=== PATIENT | female | born 1995 | race Caucasian/White ===

== ENCOUNTER 2020-01-15 12:59 | Outpatient (REF) | payer OTHER, SELFPAY ==
[2020-01-15 13:39] LABS: Hematocrit 46.8 % (37-47); Hemoglobin 15.3 g/dl (12.0-16.0); Mean Corpuscular HGB Conc 32.7 g/dl (31.0-35.0); Mean Corpuscular Hemoglobin 28.6 pg (27.0-33.0); Mean Corpuscular Volume 87.5 fL (80-98); Platelet Count 202 X10*3/uL (160-400); Red Blood Count 5.35 X10*6/uL (4.20-5.50); Red Cell Distribution Width 12.7 % (11.0-16.0); White Blood Count 6.7 X10*3/uL (4.8-10.8)
[2020-01-15 13:47] LABS: INTERNATIONAL NORM RATIO 1.1 (0.9-1.1); Prothrombin Time 13.5 SEC (10.8-13.0)
[2020-01-15 14:34] LABS: Alanine Aminotransferase 32 U/L (0-31); Alkaline Phosphatase 41 U/L (39-117); Aspartate Amino Transferase 23 U/L (5-31); Bilirubin Direct 0.7 mg/dL (0.0-0.5); Bilirubin Total 4.3 mg/dL (0.0-1.0); Gamma Glutamyl Transpeptidase 118 U/L (7-33); Total Protein 7.5 g/dL (6.5-8.0)
== END 2020-01-15 13:00 | disposition home or self-care (01) ==
LOC: HO.LAB 12:59
PROVIDERS: PCP Internal Medicine; Visit Provider Internal Medicine Gastroenterology
DX: R79.89 Other specified abnormal findings of blood chemistry (principal)
CPT/HCPCS: 36415; 80076; 82105; 82977; 85027; 85610

== ENCOUNTER → 2020-01-16 10:48 | Outpatient (BNVA) | payer OTHER, SELFPAY | PROVIDERS: PCP Internal Medicine; Referring Provider Internal Medicine; Visit Provider Internal Medicine Gastroenterology | DX: Z76.89 Persons encountering health services in other specified circumstances (principal) ==

== ENCOUNTER → 2020-01-16 10:48 | Outpatient (BNVA) | payer OTHER, SELFPAY | PROVIDERS: PCP Internal Medicine; Referring Provider Internal Medicine; Visit Provider Internal Medicine Gastroenterology ==

== ENCOUNTER → 2020-01-16 10:48 | Outpatient (BNVA) | payer OTHER, SELFPAY | PROVIDERS: PCP Internal Medicine; Referring Provider Internal Medicine; Visit Provider Internal Medicine Gastroenterology | DX: K74.60 Unspecified cirrhosis of liver (principal); R79.89 Other specified abnormal findings of blood chemistry | CPT/HCPCS: 99212 ==

== ENCOUNTER 2020-07-06 08:18 | Outpatient (REF) | payer OTHER, SELFPAY ==
[2020-07-06 09:50] LABS: Alanine Aminotransferase 33 U/L (0-31); Aspartate Amino Transferase 22 U/L (5-31); Cholesterol 144 mg/dL; HDL Cholesterol 44 mg/dL; LDL Cholesterol Calculated 67 mg/dl; Triglycerides 169 mg/dL
== END 2020-07-06 08:19 | disposition home or self-care (01) ==
LOC: HO.LAB 08:18
PROVIDERS: PCP Internal Medicine; Visit Provider Internal Medicine
DX: E78.1 Pure hyperglyceridemia (principal)
CPT/HCPCS: 36415; 80061; 84450; 84460

== ENCOUNTER 2020-09-24 11:24 | Outpatient (REF) | payer OTHER, SELFPAY ==
[2020-09-24 14:12] LABS: Basophils Absolute Auto 0.1 X10*3/uL (0.0-0.2); Hemoglobin 16.1 g/dl (12.0-16.0); MANUAL DIFF FLAG SCAN; PLT CLUMP 1; Red Cell Distribution Width 12.8 % (11.0-16.0); SCAN SMEAR FLAG 1
[2020-09-24 14:14] LABS: Basophils Percent Auto 1.1 % (0-2); Eosinophils Absolute Auto 0.2 X10*3/uL (0.0-0.4); Eosinophils Percent Auto 2.3 % (0-4); Hematocrit 49.5 % (37-47); INTERNATIONAL NORM RATIO 1.1 (0.9-1.1); Imm Gran Abs Auto 0.02 X10*3/uL (0.00-0.03); Imm Gran Pct Auto 0.3 % (0.0-0.4); Lymphocytes Absolute Auto 1.8 X10*3/uL (1.2-4.9); Lymphocytes Percent Auto 26.7 % (20-40); Mean Corpuscular HGB Conc 32.5 g/dl (31.0-35.0); Mean Corpuscular Hemoglobin 28.7 pg (27.0-33.0); Mean Corpuscular Volume 88.2 fL (80-98); Mean Platelet Volume 11.2 fL (9.4-12.3); Monocytes Absolute Auto 0.8 X10*3/uL (0.1-1.2); Monocytes Percent Auto 11.9 % (2-11); Neutrophils Absolute Auto 3.8 X10*3/uL (2.0-8.3); Neutrophils Percent Auto 57.7 % (45-73); Platelet Count 173 X10*3/uL (160-400); Prothrombin Time 12.7 SEC (10.8-13.0); Red Blood Count 5.61 X10*6/uL (4.20-5.50); White Blood Count 6.6 X10*3/uL (4.8-10.8)
[2020-09-24 14:15] LABS: Alanine Aminotransferase 28 U/L (0-31); Alkaline Phosphatase 38 U/L (39-117); Aspartate Amino Transferase 23 U/L (5-31); Bilirubin Direct 0.8 mg/dL (0.0-0.5); Bilirubin Total 3.7 mg/dL (0.0-1.0); Total Protein 7.7 g/dL (6.5-8.0)
[2020-09-24 14:35] LABS: SLIDE REVIEW VERIFIED
== END 2020-09-24 11:25 | disposition home or self-care (01) ==
LOC: HO.LAB 11:24
PROVIDERS: PCP Internal Medicine; Referring Provider Internal Medicine; Visit Provider Internal Medicine Gastroenterology
DX: K74.60 Unspecified cirrhosis of liver (principal); R79.89 Other specified abnormal findings of blood chemistry
CPT/HCPCS: 36415; 80076; 85025; 85610; 99212

== ENCOUNTER 2020-10-20 09:19 | Outpatient (REF) | payer OTHER, SELFPAY ==
--- NOTE | ~2020-10-20 | US_ITS ---
EXAMINATION: US ABDOMEN LIMITED CLINICAL INFORMATION: Unspecified cirrhosis of liver. COMPARISON: Ultrasound abdomen complete 06/05/2019 and 02/13/2019. TECHNIQUE: Real-time imaging of the right upper quadrant abdominal viscera. FINDINGS: There is situs inversus. PANCREAS: Not well visualized. The visualized pancreas appears prominent and slightly heterogeneous in echotexture similar to previous exam.. LIVER: Liver echotexture is heterogeneous. The liver is normal in size and contour. No focal hepatic lesion. There is no intrahepatic biliary duct dilatation seen. GALLBLADDER: Normal. The gallbladder is physiologically distended without evidence of stones, sludge, polyps, wall thickening or pericholecystic fluid. COMMON BILE DUCT: Normal in caliber measuring 0.12 - 0.2 cm in diameter. LEFT KIDNEY: Normal. No hydronephrosis. No renal calculi or focal parenchymal lesions. The kidney measures 11.4 cm in maximum dimension. FREE FLUID: None. US/US abdomen limited IMPRESSION: Situs inversus. Slightly heterogeneous liver echotexture. No focal liver lesion seen. Limited visualization of the pancreas.
== END 2020-10-20 09:20 | disposition home or self-care (01) ==
LOC: HO.US 09:19
PROVIDERS: PCP Internal Medicine; Visit Provider Internal Medicine Gastroenterology
DX: K74.60 Unspecified cirrhosis of liver (principal)
CPT/HCPCS: 76705

== ENCOUNTER 2021-01-06 08:19 | Outpatient (REF) | payer OTHER, SELFPAY ==
[2021-01-06 11:47] LABS: Anion Gap 14 (12-20); Blood Urea Nitrogen 14 mg/dL (9-16); Calcium 9.5 mg/dL (8.4-10.2); Carbon Dioxide 20 mmol/L (22-29); Chloride 108 mmol/L (96-108); Estimated Glomerular Filt Rate > 60; Glucose Fasting 73 mg/dL (60-99); Potassium 4.3 mmol/L (3.3-5.1); Sodium 138 mmol/L (135-145)
== END 2021-01-06 08:20 | disposition home or self-care (01) ==
LOC: HO.HMGCLDS 08:19
PROVIDERS: PCP Internal Medicine; Visit Provider Internal Medicine
DX: I10 Essential (primary) hypertension (principal)
CPT/HCPCS: 36415; 80048

== ENCOUNTER 2021-03-17 08:03 | Outpatient (REF) | payer OTHER, SELFPAY ==
[2021-03-17 09:06] LABS: Alanine Aminotransferase 33 U/L (0-31); Anion Gap 13 (12-20); Aspartate Amino Transferase 26 U/L (5-31); Blood Urea Nitrogen 13 mg/dL (9-16); Calcium 9.5 mg/dL (8.4-10.2); Carbon Dioxide 22 mmol/L (22-29); Chloride 108 mmol/L (96-108); Cholesterol 154 mg/dL; Estimated Glomerular Filt Rate > 60; Glucose Fasting 78 mg/dL (60-99); HDL Cholesterol 37 mg/dL; LDL Cholesterol Calculated 83 mg/dl; Potassium 4.2 mmol/L (3.3-5.1); Sodium 139 mmol/L (135-145); Triglycerides 174 mg/dL
== END 2021-03-17 08:04 | disposition home or self-care (01) ==
LOC: HO.LAB 08:03
PROVIDERS: PCP Internal Medicine; Visit Provider Internal Medicine
DX: E78.1 Pure hyperglyceridemia (principal); I48.91 Unspecified atrial fibrillation; K74.60 Unspecified cirrhosis of liver; Q24.9 Congenital malformation of heart, unspecified; R79.89 Other specified abnormal findings of blood chemistry; I10 Essential (primary) hypertension
CPT/HCPCS: 36415; 80048; 80061; 84450; 84460

== ENCOUNTER → 2021-08-26 12:37 | Outpatient (BNVA) | payer OTHER, SELFPAY | PROVIDERS: PCP Internal Medicine; Referring Provider Internal Medicine; Visit Provider Internal Medicine Gastroenterology | DX: K74.60 Unspecified cirrhosis of liver (principal); R79.89 Other specified abnormal findings of blood chemistry | CPT/HCPCS: 99212 ==

== ENCOUNTER 2021-09-03 07:55 | Outpatient (REF) | payer OTHER, SELFPAY ==
[2021-09-03 08:57] LABS: Hematocrit 49.8 % (37.0-47.0); Hemoglobin 16.1 g/dl (12.0-16.0); Mean Corpuscular HGB Conc 32.3 g/dl (31.0-35.0); Mean Corpuscular Hemoglobin 28.5 pg (27.0-33.0); Mean Corpuscular Volume 88.3 fL (80.0-98.0); Mean Platelet Volume 10.6 fL (9.4-12.3); Platelet Count 206 X10*3/uL (160-400); Red Blood Count 5.64 X10*6/uL (4.20-5.50); Red Cell Distribution Width 13.7 % (11.0-16.0); White Blood Count 5.4 X10*3/uL (4.8-10.8)
[2021-09-03 09:07] LABS: INTERNATIONAL NORM RATIO 1.1 (0.9-1.1); Prothrombin Time 12.7 SEC (9.9-13.0)
[2021-09-03 09:21] LABS: Alanine Aminotransferase 32 U/L (0-31); Alkaline Phosphatase 47 U/L (39-117); Aspartate Amino Transferase 24 U/L (5-31); Bilirubin Direct 0.9 mg/dL (0.0-0.5); Bilirubin Total 4.6 mg/dL (0.0-1.0); Total Protein 7.8 g/dL (6.5-8.0)
[2021-09-03 09:38] LABS: Hepatitis B Surface Antigen Negative (Negative)
[2021-09-03 09:39] LABS: Cholesterol 176 mg/dL; HDL Cholesterol 46 mg/dL; LDL Cholesterol Calculated 99 mg/dl; Triglycerides 159 mg/dL
== END 2021-09-03 07:56 | disposition home or self-care (01) ==
LOC: HO.LAB 07:55
PROVIDERS: Absent Provider Internal Medicine; PCP Internal Medicine; Visit Provider Internal Medicine Gastroenterology
DX: K74.60 Unspecified cirrhosis of liver (principal); E78.1 Pure hyperglyceridemia; Q24.9 Congenital malformation of heart, unspecified
CPT/HCPCS: 36415; 80061; 80076; 85027; 85610; 87340

== ENCOUNTER 2021-12-27 08:10 | Outpatient (REF) | payer OTHER, SELFPAY ==
--- NOTE | ~2021-12-27 | US_ITS ---
EXAMINATION: US ABDOMEN COMPLETE CLINICAL INFORMATION: Unspecified cirrhosis of liver. COMPARISON: Ultrasound abdomen limited 10/20/2020. TECHNIQUE: Real-time imaging of the abdominal viscera. FINDINGS: Findings of situs inversus with the liver located in the left upper quadrant in the spleen in the right upper quadrant. PANCREAS: Normal. ABDOMINAL AORTA: Visualized aorta is normal in caliber however portions are obscured by bowel gas. INFERIOR VENA CAVA: Visualized portions are normal. LIVER: The liver is normal in size. The liver contour is normal. Parenchymal echogenicity is normal. No focal hepatic lesion. There is no intrahepatic biliary duct dilatation seen. GALLBLADDER: Normal. The gallbladder is physiologically distended without evidence of stones, sludge, polyps, wall thickening or pericholecystic fluid. COMMON BILE DUCT: Normal in caliber measuring 0.2 cm in diameter. RIGHT KIDNEY: Normal. No hydronephrosis. No renal calculi or focal parenchymal lesions. The kidney measures 10.4 cm in maximum dimension. LEFT KIDNEY: Normal. No hydronephrosis. No renal calculi or focal parenchymal lesions. The kidney measures 11.5 cm in maximum dimension. SPLEEN: Normal. The spleen measures 11.7 cm in maximum dimension. FREE FLUID: None. US/US abdomen complete IMPRESSION: Findings of situs inversus. No liver lesion.
== END 2021-12-27 08:11 | disposition home or self-care (01) ==
LOC: HO.US 08:10
PROVIDERS: Visit Provider Internal Medicine Gastroenterology
DX: K74.60 Unspecified cirrhosis of liver (principal)
CPT/HCPCS: 76700

== ENCOUNTER 2022-01-13 08:00 | Outpatient (REF) | payer OTHER, SELFPAY ==
[2022-01-13 11:55] LABS: Alanine Aminotransferase 30 U/L (0-31); Aspartate Amino Transferase 27 U/L (5-31); Cholesterol 173 mg/dL; Glucose Fasting 78 mg/dL (60-99); HDL Cholesterol 49 mg/dL; LDL Cholesterol Calculated 102 mg/dl; Triglycerides 112 mg/dL
== END 2022-01-13 08:01 | disposition home or self-care (01) ==
LOC: HO.HMGCLDS 08:00
PROVIDERS: PCP Internal Medicine; Visit Provider Internal Medicine
DX: E78.1 Pure hyperglyceridemia (principal); Q24.9 Congenital malformation of heart, unspecified; K74.60 Unspecified cirrhosis of liver
CPT/HCPCS: 36415; 80061; 82947; 84450; 84460

== ENCOUNTER → 2022-01-20 07:53 | Outpatient (BNVA) | payer OTHER, SELFPAY | PROVIDERS: PCP Internal Medicine; Referring Provider Internal Medicine; Visit Provider Internal Medicine Gastroenterology | DX: Z23 Encounter for immunization (principal); K74.60 Unspecified cirrhosis of liver | CPT/HCPCS: 90471; 90746; 99212 ==

== ENCOUNTER → 2022-02-22 09:27 | Outpatient (BNVA) | payer OTHER, SELFPAY | PROVIDERS: PCP Internal Medicine; Visit Provider Internal Medicine Gastroenterology | DX: Z23 Encounter for immunization (principal); Z72.89 Other problems related to lifestyle | CPT/HCPCS: 90471; 90746 ==

== ENCOUNTER 2022-04-01 07:55 | Outpatient (AMB) | payer OTHER, SELFPAY ==
--- NOTE | 2022-04-01 07:57 | A.OFFPC_ITS ---
Vital Signs 04/01/22 07:58 Height 5 ft 3 in Weight 127 lb BMI 22.4 BP 94/60 Blood Pressure Location Lt brachial Position Sitting Pulse 78 Pulse Source Pulse Oximeter Pulse Oximetry (%) 96 Oxygen Delivery Method Room Air Intake Visit Reasons: annual PE Intake Note: Pt is here today for PE. 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 She is currently being followed by Dr. Costa for her liver cirrhosis, has an appointment again for follow-up with her in 6 months with repeat abdominal ultrasound to be done prior to visit. She has been feeling well, with no complaints at present time, exercises regularly. She is up-to-date with all her vaccinations has not yet had her pneumonia vaccine. She still waiting for an appointment to have her wisdom teeth removed, as it is to be done in the OR. ?? ? 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 Father Diabetes Household Members: Family Housing: House Alcohol intake: never Patient Tobacco Use Status: Never used Tobacco e-Cigarette/Vaping Use: Never Used Second Hand Smoke Exposure: No service: No Current occupational status: disabled Current occupational exposures/hazards: No Cognitive needs: No Hearing needs: No Vision needs: Yes Female Reproductive History Menstrual Duration of menses: 3-5 days Date of last menstrual period: 03/20/22 control method: none History of abnormal pap smear: No Questionnaire PHQ-9 Over the last 2 weeks, how often have you been bothered by any of the following problems? 1. Little interest or pleasure in doing things: not at all 2. Feeling down, depressed, or hopeless: not at all 3. Trouble falling or staying asleep, or sleeping too much: not at all 4. Feeling tired or having little energy: not at all 5. Poor appetite or overeating: not at all 6. Feeling bad about yourself - or that you are a failure or have let yourself or your family down: not at all 7. Trouble concentrating on things, such as reading the newspaper or watching television: not at all 8. Moving or speaking so slowly that other people could have noticed. Or the opposite - being so fidgety or restless that you have been moving around a lot more than usual: not at all 9. Thoughts that you would be better off or of hurting yourself in some way: not at all Total score: 0 Depression Screening Interpretation: Negative [id number] - PHQ-9 Billing: Yes Source: Developed by Drs. Tonny Grimm, Ksenia Delong, Roly ramachandran, with an educational anayeli from [employer]. Thrive Questionnaire Date Thrive assessed: 09/22/21 AUDIT C Alcohol Use Questionnaire (AUDIT-C) 1. How often do you have a drink containing alcohol?: Never Total Score: 0 DIMAS-7 AMB Questionnaire DIMAS-7 Date DIMAS - 7 assessed: 09/22/21 Source: Developed by Drs. Tonny Grimm, Ksenia Delong, Roly Walker and colleagues, with an educational anayeli from [employer]. Review of Systems Const Denies fever(s), Denies headache(s) and Denies weight loss Eyes Details: Goes to [facility] Reports blurry vision and Denies change in vision ENT Denies dysphagia, Denies vertigo, Denies dizziness, Denies headache(s), Denies nasal congestion and Denies disequilibrium Card Denies chest pain, Denies syncope, Denies leg edema, Denies lightheadedness and Denies dyspnea Resp Denies cough and Denies dyspnea GI Denies abdominal pain, Denies change in bowel habits, Denies dysphagia and Denies heartburn Denies difficulty voiding and Denies dysuria Musc Denies abnormal gait, Denies back pain, Denies arthralgias and Denies numbness Skin/Breast Denies pruritus, Denies rash and Denies jaundice Neuro Denies Abnormal speech present, Denies abnormal gait, Denies vertigo, Denies dizziness, Denies syncope, Denies headache(s), Denies focal weakness, Denies numbness, Denies seizure-like activity, Denies Sensory deficit (Neuro) and Denies disequilibrium Psych Reports no additional complaints Endo Denies cold intolerance, Denies flushing, Denies heat intolerance and Denies polydipsia John/Lymph Denies easy bleeding and Denies easy bruising Aller/Immun Reports no additional complaints Physical exam (Primary Care) Vital Signs: Last Vital Signs Pulse 78 04/01/22 07:58 BP 94/60 04/01/22 07:58 Pulse Ox 96 04/01/22 07:58 Oxygen Delivery Method Room Air 04/01/22 07:58 BMI result Body Mass Index 22.4 Tobacco/Smoking Status: Tobacco use Status Tobacco use date assessed 04/01/22 04/01/22 08:00 Patient Tobacco Use Status Never used Tobacco 04/01/22 07:58 e-Cigarette/Vaping Use Never Used 04/01/22 07:58 PHQ-9: PHQ-9 Score PHQ-9: Total score 0 04/01/22 09:26 Depression Screening Interpretation: Negative Thrive Assessment: Date of Thrive Assessment Date Thrive assessed 09/22/21 04/01/22 07:58 Const General: comfortable, no acute distress and alert Orientation/consciousness: patient oriented x3 Limitations: no limitations HENMT Head: Yes normal to inspection and Yes normocephalic Ears: hearing grossly normal bilaterally, external ears normal, TM's normal bilaterally and EAC's normal General nose exam: Normal external nose present and No nasal discharge present Face and sinus: Yes face symmetric Mouth: Normal oral and palatal mucosa present, tongue normal, oropharynx normal and moist mucous membranes Eyes General: appearance normal, both eyes and all related structures Neck Neck: Yes full ROM, Yes no lymphadenopathy and Yes supple Carotids: no bruits Chest Breast/axilla inspection: normal inspection of the breasts and normal inspection of the axillae Breast/axilla palpation: normal palpation of the breasts Resp Effort & Inspection: normal respiratory effort and able to speak in complete sentences Auscultation: clear to auscultation bilaterally Cardio Rate: regular rate Rhythm: regular rhythm Heart sounds: S1 normal heart sound present and S2 normal heart sound present GI Inspection: Yes normal to inspection Palpation (GI): Soft to palpation, nontender, no guarding, no masses and no pulsatile masses General: Yes no CVA tenderness Back/Spine/Pelvis Back: no CVA tenderness and No back tenderness Skin General skin exam: no rashes or lesions noted Neuro General: patient oriented x3, gait normal, tone normal, moves all extremities, Normal light touch and pain sensation and no focal motor deficits Cranial nerves: Yes CN's II-XII intact bilaterally Cognition (Neuro): normal cognition Speech: No Abnormal speech present Gait exam (Neuro): Normal gait present Motor exam (neuro): 5/5 motor strength present throughout Sensory Exam: No Sensory deficit (Neuro) Extrem General: Yes full ROM, Yes no joint enlargement, Yes no clubbing, cyanosis or edema and Yes no calf tenderness Psych Appearance: grossly normal and well kempt Mental Status: mental status grossly normal Speech and movement: Normal speech and movement present Affect: Blunted affect present Attitude: cooperative Thought process: Normal thought process present Immunizations pneumoc 20-zahraa conj-dip cr(PF) 0.5 mL IM syringe Performing Provider: Sandra Stanley MD Performing Location: [facility] [place] [facility] Administered by: NELLY Garsia on 04/01/22 08:35 Dose Route Admin Location Dispensed Lot Number Expiration Date NDC Sales Support Consultant 0.5 mL IM Left Deltoid 0.5 mL [id number] 07/02/23 4963-3725-63 WYETH/PFIZER VIS Given Date VIS Provided VIS Publication Date 04/01/22 Single Vaccine 21 Eligibility Eligibility Date Funding Source Not [facility] Eligible 04/01/22 Private Assessment and Plan Assessment & Plan (1) Annual visit for general adult medical examination with abnormal findings: Code(s): Z00.01 - Encounter for general adult medical examination with abnormal findings Plan: Will check appropriate labs. Recommended dental visit every 6 months and regular eye exams, at least every 2 years, goes to [facility]. Take adequate calcium in diet and vitamin-D 3 at 2000 IU per cap once a day, in addition to weight-bearing exercises to help maintain good muscle tone and weight control. Instructed to do self-breast exam, she however declines getting a pelvic exam or getting a cervical cancer screening. . She is up-to-date with COVID vaccination and gets yearly flu shots, Prevnar 20 given today (2) Cirrhosis of liver without ascites: Code(s): K74.60 - Unspecified cirrhosis of liver Plan: Followed by Dr. Costa (3) Hypertriglyceridemia: Code(s): E78.1 - Pure hyperglyceridemia Plan: Last fasting lipid profilewith levels within normal limits . Continue with adherence to low-cholesterol diet and regular exercise, at least 30 minutes 3 to 4 times a week. Advised patient to make healthy food choices, eat more fruits, vegetables, whole grains, wild caught fish and low-fat dairy. Limit amount of meat and fried or fatty food products, as well as processed foods and fast foods. . (4) Heterotaxy syndrome with asplenia: Code(s): Q20.6 - Isomerism of atrial appendages; Q89.01 - Asplenia (congenital) Plan: Followed by [facility] cardiology (5) Situs inversus with dextrocardia: Code(s): Q89.3 - Situs inversus Plan: Followed by [facility] cardiology (6) Social anxiety disorder: Code(s): F40.10 - Social phobia, unspecified Plan: controlled without any medication, patient states that she no longer goes to therapy (7) Congenital heart disease, cyanotic: Code(s): Q24.9 - Congenital malformation of heart, unspecified (8) Asplenia: Code(s): Q89.01 - Asplenia (congenital) Orders: Orders Alanine Aminotransferase 04/01/22 E78.1 - Pure hyperglyceridemia, Q24.9 - Congenital malformation of heart, unspecified, K74.60 - Unspecified cirrhosis of liver, Z00.01 - Encounter for general adult medical examination with abnormal findings Aspartate Amino Transferase 04/01/22 E78.1 - Pure hyperglyceridemia, Q24.9 - Congenital malformation of heart, unspecified, K74.60 - Unspecified cirrhosis of liver, Z00.01 - Encounter for general adult medical examination with abnormal findings Pneumococcal 20 Immunization 04/01/22 Z23 - Encounter for immunization Complete Blood Count Auto Diff 04/01/22 E78.1 - Pure hyperglyceridemia, Q24.9 - Congenital malformation of heart, unspecified, K74.60 - Unspecified cirrhosis of liver, Z00.01 - Encounter for general adult medical examination with abnormal findings Lipid Panel 04/01/22 E78.1 - Pure hyperglyceridemia, Q24.9 - Congenital malformation of heart, unspecified, K74.60 - Unspecified cirrhosis of liver, Z00.01 - Encounter for general adult medical examination with abnormal findings Vitamin D 25-OH Total 04/01/22 E78.1 - Pure hyperglyceridemia, Q24.9 - Congenital malformation of heart, unspecified, K74.60 - Unspecified cirrhosis of liver, Z00.01 - Encounter for general adult medical examination with abnormal findings Basic Metabolic Panel Fasting 04/01/22 E78.1 - Pure hyperglyceridemia, Q24.9 - Congenital malformation of heart, unspecified, K74.60 - Unspecified cirrhosis of liver, Z00.01 - Encounter for general adult medical examination with abnormal findings Coding Level of Care Code Est Pt Prev Care 18-39y([id number]) Diagnoses Annual visit for general adult medical examination with abnormal findings Z00.01 Cirrhosis of liver without ascites K74.60 Hypertriglyceridemia E78.1 Heterotaxy syndrome with asplenia Q20.6; Q89.01 Situs inversus with dextrocardia Q89.3 Social anxiety disorder F40.10 Congenital heart disease, cyanotic Q24.9 Asplenia Q89.01
[2022-04-01 07:58] VITALS: BP 94/60; PULSE 78; O2SAT 96; BMI 22.4
== END 2022-04-01 09:19 | disposition home or self-care (01) ==
LOC: HO.HMGC 07:55
PROVIDERS: PCP Internal Medicine; Visit Provider Internal Medicine
DX: Z00.00 Encounter for general adult medical examination without abnormal findings (principal); K74.60 Unspecified cirrhosis of liver; E78.1 Pure hyperglyceridemia; Z23 Encounter for immunization; Q20.6 Isomerism of atrial appendages; Q89.01 Asplenia (congenital); Q89.3 Situs inversus; F40.10 Social phobia, unspecified; Q24.9 Congenital malformation of heart, unspecified
CPT/HCPCS: 90471; 90677; 99395

== ENCOUNTER → 2022-07-28 08:33 | Outpatient (BNVA) | payer OTHER, SELFPAY | PROVIDERS: PCP Internal Medicine; Referring Provider Internal Medicine; Visit Provider Internal Medicine Gastroenterology | DX: K74.60 Unspecified cirrhosis of liver (principal); Q24.9 Congenital malformation of heart, unspecified; Q89.3 Situs inversus; Z23 Encounter for immunization | CPT/HCPCS: 90471; 90746; 99212 ==

== ENCOUNTER 2022-08-16 08:33 | Outpatient (REF) | payer OTHER, SELFPAY ==
[2022-08-16 08:55] LABS: MANUAL DIFF FLAG NO
[2022-08-16 09:14] LABS: Basophils Absolute Auto 0.1 X10*3/uL (0.0-0.2); Basophils Percent Auto 1.1 % (0-2); Eosinophils Absolute Auto 0.2 X10*3/uL (0.0-0.4); Eosinophils Percent Auto 3.7 % (0-4); Hematocrit 47.1 % (37.0-47.0); Hemoglobin 15.5 g/dl (12.0-16.0); Imm Gran Abs Auto 0.01 X10*3/uL (0.00-0.03); Imm Gran Pct Auto 0.2 % (0.0-0.4); Lymphocytes Absolute Auto 1.4 X10*3/uL (1.2-4.9); Lymphocytes Percent Auto 29.3 % (20-40); Mean Corpuscular HGB Conc 32.9 g/dl (31.0-35.0); Mean Corpuscular Hemoglobin 28.3 pg (27.0-33.0); Mean Corpuscular Volume 86.1 fL (80.0-98.0); Monocytes Absolute Auto 0.6 X10*3/uL (0.1-1.2); Monocytes Percent Auto 13.7 % (2-11); Neutrophils Absolute Auto 2.4 x10*3/uL (2.0-8.3); Platelet Count 218 X10*3/uL (160-400); Red Blood Count 5.47 X10*6/uL (4.20-5.50); Red Cell Distribution Width 13.3 % (11.0-16.0); White Blood Count 4.6 X10*3/uL (4.8-10.8)
[2022-08-16 09:21] LABS: INTERNATIONAL NORM RATIO 1.1 (0.9-1.1); Prothrombin Time 12.6 SEC (10.0-13.1)
[2022-08-16 09:57] LABS: Alanine Aminotransferase 28 U/L (0-31); Anion Gap 12 (12-20); Aspartate Amino Transferase 24 U/L (5-31); Blood Urea Nitrogen 13 mg/dL (9-16); Calcium 9.9 mg/dL (8.4-10.2); Carbon Dioxide 21 mmol/L (22-29); Chloride 109 mmol/L (96-108); Cholesterol 181 mg/dL; Estimated Glomerular Filt Rate > 60; Glucose Fasting 76 mg/dL (60-99); HDL Cholesterol 47 mg/dL; LDL Cholesterol Calculated 106 mg/dl; Potassium 4.4 mmol/L (3.3-5.1); Sodium 138 mmol/L (135-145); Triglycerides 144 mg/dL
[2022-08-16 10:20] LABS: Vitamin D 25-OH Total 65.4 ng/mL (>30)
[2022-08-18 14:38] LABS: Alpha Fetoprotein 2.5 ng/mL
== END 2022-08-16 08:34 | disposition home or self-care (01) ==
LOC: HO.LAB 08:33
PROVIDERS: Internal Medicine Gastroenterology; PCP Internal Medicine; Visit Provider Internal Medicine
DX: Z00.01 Encounter for general adult medical examination with abnormal findings (principal); K74.60 Unspecified cirrhosis of liver; E78.1 Pure hyperglyceridemia; Q24.9 Congenital malformation of heart, unspecified
CPT/HCPCS: 36415; 80048; 80061; 82105; 82306; 84450; 84460; 85025; 85610

== ENCOUNTER 2022-10-24 10:13 | Outpatient (AMB) | payer OTHER, SELFPAY ==
--- NOTE | 2022-10-24 10:32 | A.OFFVIS_ITS ---
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 FOLLOWED BY DR GARCIA Intake Note: healthcare associate/ Allergies No Known Allergies Allergy (Verified 10/24/22 10:50) Medication List - Last Reconciled 10/24/22 by Bib Puga MD aspirin (Adult Low Dose Aspirin) 81 mg PO DAILY digoxin 125 mcg PO Q OTHER DAY lisinopril 2.5 mg PO DAILY sotalol 80 mg PO BID HPI HPI Comments History of Present Illness Details 27-year-old female who has congenital heart disease and follows with Dr. Garcia. She started seen Gastroenterology at [place] for cirrhosis of liver as a potential complication of Fontan procedure. 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 Garcia once a year. She has dextrocardia, hypoplastic left heart for which she had unifocalization of pulmonary arteries, insertion of a right word Kyleigh-Taussig shunt and placement of left ventricle to aortic conduit in July 9094 bed [facility]. She had revision of Kyleigh-Taussig shunt with right pulmonary artery arterioplasty on 1994. She had a balloon valvuloplasty of the left pulmonary artery with a 4 mm balloon and right pulmonary artery with a 5.5 mm balloon in September 1994. Subsequently had a takedown of the right Kyleigh- Taussig shunt, bilateral bidirectional Ti was placed and take down a left ventricle to aortic could do it and replacement of left ventricle congruent from left ventricle to pulmonary artery with a 12 mm aortic homograft in October 1994. She had closure of mitral valve, enlargement of central pulmonary arteries and lateral tunnel fenestrated Fontan procedure in September 2000. 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 She had closure of Fontan fenestration with 17 mm cardioSeal device in July 2002. She has been on sotalol for intra atrial reentrant tachycardia. She has been seeing Dr. Costa for cirrhosis of liver which is potential complication of Fontan. She also saw Dr. Garcia in October 2022. She is denying any palpitations. She has no chest pains or shortness of breath. She is on disability. She has us treadmill at home and exercises regularly without any significant issues. Taking medications regularly including sotalol. QTC within normal limits. No peripheral edema. 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 Father Diabetes Social History Household Members: Family Housing: House Alcohol intake: never Patient Tobacco Use Status: Never used Tobacco e-Cigarette/Vaping Use: Never Used Second Hand Smoke Exposure: No service: No Current occupational status: disabled Current occupational exposures/hazards: No Cognitive needs: No Hearing needs: No Vision needs: Yes Review of Systems Const Denies chills, Denies daytime sleepiness, Denies fatigue, Denies fever(s), Denies frequent falls, Denies night sweats, Denies snoring, Denies weakness, Denies weight gain and Denies weight loss Eyes Denies loss of vision ENT Denies dizziness and Denies hearing loss Card Denies chest pain, Denies chest pain with activity, Denies syncope, Denies rapid heart rate, Denies edema, Denies claudication, Denies leg edema, Denies lightheadedness, Denies palpitations, Denies dyspnea, Denies dyspnea on exertion and Denies orthopnea Resp Denies cough, Denies excessive phlegm production, Denies dyspnea, Denies dyspnea on exertion, Denies snoring and Denies wheezing GI Denies abdominal pain, Denies hematochezia, Denies change in bowel habits, Denies change in stool character, Denies heartburn, Denies nausea and Denies vomiting Denies hematuria, Denies urinary frequency and Denies dysuria Musc Denies arthralgias, Denies muscle weakness, Denies numbness and Denies tingling Skin/Breast Denies nail changes and Denies rash Neuro Denies Abnormal speech present, Denies dizziness, Denies syncope, Denies frequent falls, Denies loss of vision, Denies memory loss, Denies numbness, Denies tingling and Denies weakness Psych Denies depression and Denies memory loss Endo Denies fatigue and Denies palpitations Aller/Immun Denies wheezing Physical Exam Vital Signs: Last Vital Signs Pulse 78 10/24/22 10:33 BP 110/70 10/24/22 10:33 BMI result Body Mass Index 23.0 GENERAL APPEARANCE: in no acute distress, pleasant. NECK: no carotid bruit, no jugular venous distention. SKIN: no suspicious lesions, warm and dry. HEART: Mid systolic murmur aortic area, regular rate and rhythm. LUNGS: clear to auscultation bilaterally. ABDOMEN: soft, nontender. EXTREMITIES: no edema. PERIPHERAL PULSES: equal. NEUROLOGIC: No gross deficits, AAO X 3 Neuro Speech: No Abnormal speech present Office Procedures EKG Details: Sinus rhythm 88 beats per minute, lateral infarct, QTC 442 milliseconds. [id number], Complete Assessment & Plan Assessment & Plan (1) Congenital heart disease, cyanotic: Code(s): Q24.9 - Congenital malformation of heart, unspecified (2) Cirrhosis of liver without ascites: Code(s): K74.60 - Unspecified cirrhosis of liver Plan Pleasant 27-year-old female with complex congenital heart disease status post corrective surgery at [facility]. She has Fontan procedure done in the past. She has cirrhosis of liver based on recent imaging and follows with Gastroenterology. Blood pressure is good. She is in sinus rhythm. She has history of intra-atrial reentry tachycardia and has been on sotalol 80 mg p.o. b.i.d.. EKG showed normal QTC. She will need antibiotic prophylaxis before dental workup. Overall clinically stable. She will follow with Dr. Garcia once a year. I have explained to her that congenital heart disease like hers is quite complex and is best managed with the help of adult congenital heart disease specialist are Dr. Garcia. We will be available to her if any new symptoms arise. In that situation we will comanage her with the help of Dr. Garcia. No changes in medications. Thank you for allowing me to participate in the care of your patient. Please feel free to contact me if you have any questions. Coding Level of Care Code New Pt Level 4 (19360) Diagnoses Congenital heart disease, cyanotic Q24.9 Cirrhosis of liver without ascites K74.60 CPT Codes EKG - CPT: 79897-[id number], Complete ([id number])
[2022-10-24 10:33] VITALS: BP 110/70; PULSE 78; BMI 23.0
== END 2022-10-24 11:00 | disposition home or self-care (01) ==
PROVIDERS: Visit Provider Internal Medicine Cardiovascular Disease
DX: Q24.9 Congenital malformation of heart, unspecified (principal); K74.60 Unspecified cirrhosis of liver
CPT/HCPCS: 93010; 99204

== ENCOUNTER → 2022-10-24 10:13 | Outpatient (BNVA) | payer OTHER, SELFPAY | PROVIDERS: Visit Provider Internal Medicine Cardiovascular Disease | DX: Q24.9 Congenital malformation of heart, unspecified (principal); K74.60 Unspecified cirrhosis of liver | CPT/HCPCS: 93005; 99202 ==

== ENCOUNTER 2022-12-06 09:29 | Outpatient (REF) | payer OTHER, SELFPAY ==
[2022-12-06 14:13] LABS: Cholesterol 153 mg/dL (<200); Glucose Fasting 75 mg/dL (60-99); HDL Cholesterol 45 mg/dL (>40); LDL Cholesterol Calculated 79 mg/dL (<100); Triglycerides 147 mg/dL (<150)
[2022-12-06 14:33] LABS: Estimated Average Glucose 100 mg/dL; Hemoglobin A1c % 5.1 % (<6.0)
== END 2022-12-06 09:30 | disposition home or self-care (01) ==
LOC: HO.HMGCLDS 09:29
PROVIDERS: PCP Internal Medicine; Visit Provider Internal Medicine
DX: Z13.1 Encounter for screening for diabetes mellitus (principal); E78.1 Pure hyperglyceridemia; R73.01 Impaired fasting glucose
CPT/HCPCS: 36415; 80061; 82947; 83036

== ENCOUNTER 2023-01-13 11:37 | Outpatient (AMB) | payer OTHER, SELFPAY ==
--- NOTE | 2023-01-13 12:11 | MHC.PC.OV ---
Vital Signs 01/13/23 12:18 Height 5 ft 3 in Weight 130 lb BMI 23.0 BP 90/64 Blood Pressure Location Lt brachial Position Sitting Pulse 69 Pulse Source Pulse Oximeter Pulse Oximetry (%) 93 Oxygen Delivery Method Room Air Intake Visit Reasons: 6 month Follow up Intake Note: Pt is here today for her 6 months f/u Allergies No Known Allergies Allergy (Verified 01/13/23 12:12) Tobacco use date assessed: 01/13/23 Dental Screening Dental Screen Date: 01/13/23 Did you have a dental visit in the last 12 months?: Yes Did you have a dental problem in the last 6 months where you did not have access to dental care?: No Was dental information given to patient?: Patient has dentist HPI 6 month Follow up HPI Details 27-year-old lady here with congenital heart disease, history of hypertriglyceridemia and impaired fasting glucose, here today for follow-up. He has been compliant with taking her medications and has been exercising regularly and has been very compliant with her diet, does a lot of portion could shoulder avoiding a lot of fast foods and junk food. Recent fasting labs showed fasting glucose and lipids are within normal limit. 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 Father Diabetes Social History Household Members: Family Housing: House Alcohol intake: never Patient Tobacco Use Status: Never used Tobacco e-Cigarette/Vaping Use: Never Used Second Hand Smoke Exposure: No service: No Current occupational status: disabled Current occupational exposures/hazards: No Cognitive needs: No Hearing needs: No Vision needs: Yes Questionnaire PHQ-9 Over the last 2 weeks, how often have you been bothered by any of the following problems? Depression Screening Interpretation: Negative Depression Screening Done: Yes Source: Developed by Drs. Tonny Grimm, Ksenia Delong, Roly Walker and colleagues, with an educational anayeli from [employer]. Thrive Questionnaire Date Thrive assessed: 09/22/21 I am a: Patient What is your living situation today?: I have a steady place to live Within the past 12 months, did the food you bought not last and you didn't have the money to get more?: Never true Within the past 12 months, did you worry whether your food would run out before you got money to buy more?: Never true Do you have trouble paying for medicines?: No Do you have trouble getting transportation to medical appointments?: No Do you have trouble paying your heating and electricity bill?: No Do you have trouble taking care of your child, family member or friend?: No Do you have trouble with day-to-day activities such as bathing, preparing meals, shopping, managing finances, etc.?: No Are you currently unemployed and looking for a job?: No Are you interested in more education?: No Please select the resources that you would like help with: None AUDIT C Alcohol Use Questionnaire (AUDIT-C) 1. How often do you have a drink containing alcohol?: Never Total Score: 0 DIMAS-7 AMB Questionnaire DIMAS-7 Date DIMAS - 7 assessed: 09/22/21 Feeling nervous, anxious, or on edge: 3 = Nearly every day Not being able to stop or control worryin = More than half the days Worrying too much about different things: 2 = More than half the days Trouble relaxin = Several days Being so restless that it is hard to sit still: 0 = Not at all Becoming easily annoyed or irritable: 1 = Several days Feeling afraid as if something awful might happen: 0 = Not at all Total DIMAS-7 score (0-4 normal; 5-9 mild; 10-14 moderate; 15-21 severe): 9 Source: Developed by Ksenia Montez, Roly Walker and colleagues, with an educational anayeli from [employer]. Review of Systems Const Denies fever(s), Denies headache(s) and Denies weight loss Eyes Details: Goes to [place] [facility] Denies change in vision ENT Denies dysphagia, Denies vertigo, Denies dizziness, Denies headache(s), Denies nasal congestion and Denies disequilibrium Card Denies chest pain, Denies syncope, Denies leg edema, Denies lightheadedness and Denies dyspnea Resp Denies cough and Denies dyspnea GI Denies abdominal pain, Denies change in bowel habits, Denies dysphagia and Denies heartburn Denies difficulty voiding and Denies dysuria Musc Denies abnormal gait, Denies back pain, Denies arthralgias and Denies numbness Skin/Breast Denies pruritus, Denies rash and Denies jaundice Neuro Denies Abnormal speech present, Denies abnormal gait, Denies vertigo, Denies dizziness, Denies syncope, Denies headache(s), Denies focal weakness, Denies numbness, Denies seizure-like activity, Denies Sensory deficit (Neuro) and Denies disequilibrium Psych Reports no additional complaints Endo Denies cold intolerance, Denies flushing, Denies heat intolerance and Denies polydipsia John/Lymph Denies easy bleeding and Denies easy bruising Aller/Immun Reports no additional complaints Physical exam (Primary Care) Vital Signs: Last Vital Signs Pulse 69 01/13/23 12:18 BP 90/64 01/13/23 12:18 Pulse Ox 93 01/13/23 12:18 Oxygen Delivery Method Room Air 01/13/23 12:18 BMI result Body Mass Index 23.0 Tobacco/Smoking Status: Tobacco use Status Tobacco use date assessed 01/13/23 01/13/23 12:12 Patient Tobacco Use Status Never used Tobacco 01/13/23 12:12 e-Cigarette/Vaping Use Never Used 01/13/23 12:12 Depression Screening Interpretation: Negative Thrive Assessment: Date of Thrive Assessment Date Thrive assessed 09/22/21 01/13/23 12:12 Const General: comfortable, no acute distress and alert Orientation/consciousness: patient oriented x3 Limitations: no limitations Eyes General: appearance normal, both eyes and all related structures Neck Neck: Yes full ROM, Yes no lymphadenopathy and Yes supple Carotids: no bruits Resp Effort & Inspection: normal respiratory effort and able to speak in complete sentences Auscultation: clear to auscultation bilaterally Cardio Rate: regular rate Rhythm: regular rhythm Heart sounds: S1 normal heart sound present and S2 normal heart sound present GI Inspection: Yes normal to inspection Palpation (GI): Soft to palpation, nontender, no guarding, no masses and no pulsatile masses General: Yes no CVA tenderness Back/Spine/Pelvis Back: no CVA tenderness and No back tenderness Skin General skin exam: no rashes or lesions noted Neuro General: patient oriented x3, gait normal, tone normal, moves all extremities and no focal motor deficits Cranial nerves: Yes CN's II-XII intact bilaterally Speech: No Abnormal speech present Gait exam (Neuro): Normal gait present Sensory Exam: No Sensory deficit (Neuro) Extrem General: Yes no joint enlargement, Yes no clubbing, cyanosis or edema and Yes no calf tenderness Office Procedures Flu Questionnaire Does the patient have a severe egg allergy?: No Does the patient have severe life threatening allergies?: No Does the patient have a fever or illness today?: No Has the patient ever had Guillain-Tecumseh Syndrome?: No Has the patient ever had any past reaction to a flu shot?: No Immunizations flu vacc [id number] 6mos up(PF) 60 mcg(15 mcgx4)/0.5 mL IM syringe Performing Provider: Sandra Stanley MD [facility] Administered by: Lottie Braswell CMA on 01/13/23 12:27 Dose Route Admin Location Dispensed Lot Number Expiration Date [facility] Dietitian Helper 0.5 mL IM Left Deltoid 0.5 mL [id number] 10/01/23 07889-499-77 YouTube VIS Given Date VIS Provided VIS Publication Date 01/13/23 Single Vaccine 20 Eligibility Eligibility Date Funding Source Not [facility] Eligible 01/13/23 Private Assessment and Plan Assessment & Plan (1) Hypertriglyceridemia: Code(s): E78.1 - Pure hyperglyceridemia Plan: Controlled through diet and exercise. (2) History of congenital heart disease: Code(s): Z87.74 - Personal history of (corrected) congenital malformations of heart and circulatory system Plan: Currently being followed by a bookkeeping manager at [facility], as well as Dr. Staci kim and also goes to [place] for yearly follow-up with her bookkeeping manager there. (3) Needs flu shot: Code(s): Z23 - Encounter for immunization Plan: Flu vaccine given today Orders: Orders Influenza [id number] Immunization 01/13/23 Z23 - Encounter for immunization Hemoglobin A1c 07/03/23 E78.1 - Pure hyperglyceridemia, Q24.9 - Congenital malformation of heart, unspecified, R73.01 - Impaired fasting glucose, Z00.01 - Encounter for general adult medical examination with abnormal findings, Z86.39 - Personal history of other endocrine, nutritional and metabolic disease Vitamin D 25-OH Total 07/03/23 E78.1 - Pure hyperglyceridemia, Q24.9 - Congenital malformation of heart, unspecified, R73.01 - Impaired fasting glucose, Z00.01 - Encounter for general adult medical examination with abnormal findings, Z86.39 - Personal history of other endocrine, nutritional and metabolic disease Basic Metabolic Panel Fasting 07/03/23 E78.1 - Pure hyperglyceridemia, Q24.9 - Congenital malformation of heart, unspecified, R73.01 - Impaired fasting glucose, Z00.01 - Encounter for general adult medical examination with abnormal findings, Z86.39 - Personal history of other endocrine, nutritional and metabolic disease Alanine Aminotransferase 07/03/23 E78.1 - Pure hyperglyceridemia, Q24.9 - Congenital malformation of heart, unspecified, R73.01 - Impaired fasting glucose, Z00.01 - Encounter for general adult medical examination with abnormal findings, Z86.39 - Personal history of other endocrine, nutritional and metabolic disease Aspartate Amino Transferase 07/03/23 E78.1 - Pure hyperglyceridemia, Q24.9 - Congenital malformation of heart, unspecified, R73.01 - Impaired fasting glucose, Z00.01 - Encounter for general adult medical examination with abnormal findings, Z86.39 - Personal history of other endocrine, nutritional and metabolic disease Lipid Panel 07/03/23 E78.1 - Pure hyperglyceridemia, Q24.9 - Congenital malformation of heart, unspecified, R73.01 - Impaired fasting glucose, Z00.01 - Encounter for general adult medical examination with abnormal findings, Z86.39 - Personal history of other endocrine, nutritional and metabolic disease Coding Level of Care Code Est Pt Level 3 (82413) Diagnoses Hypertriglyceridemia E78.1 History of congenital heart disease Z87.74 Needs flu shot Z23
[2023-01-13 12:18] VITALS: BP 90/64; PULSE 69; O2SAT 93; BMI 23.0
== END 2023-01-13 12:52 | disposition home or self-care (01) ==
PROVIDERS: PCP Internal Medicine; Visit Provider Internal Medicine
DX: Z23 Encounter for immunization (principal)
CPT/HCPCS: 90471; 90686; 99213

== ENCOUNTER 2023-01-26 08:24 | Outpatient (AMB) | payer OTHER, SELFPAY ==
--- NOTE | 2023-01-26 08:32 | A.OFFVIS_ITS ---
Intake Vital Signs 01/26/23 08:34 Height 5 ft 3 in Weight 128 lb BMI 22.7 BP 89/55 L Blood Pressure Location Lt brachial Position Sitting Pulse 78 Intake Visit Reasons: 6 month fu Intake Note: Patient follow up Cirrhosis of liver and lab results. Patient denies any GI issues. Skirt Clipper Required: No Accompanied by: Grand Parent Allergies No Known Allergies Allergy (Verified 01/26/23 08:31) HPI 6 month fu HPI Details FOLLOW-UP GI CLINIC VISIT FOR THIS 27-YEAR-OLD FEMALE FOR FOLLOW-UP OF CIRRHOSIS AND ELEVATED LFTS. Pt is status post Fontan's procedure after . Patient has likely developed cirrhosis as a complication of Fontan's procedure as a result of chronic low-cardiac output state combined with increased mesenteric resistance and chronic venous congestion. CHRONIC ILLNESSES:?ATRIAL FIBRILLATION/ FLUTTER S/P CARDIOVERSION 05/21/12 DONE IN [place] AND MAINTAINED ON SOTALOL - CURRENTLY FOLLOWED BY DR. 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 ? INTA- ATRIAL TACHYCARDIA - FOLLOWED [facility] DR. GARCIA, HX OF DEPRESSION, HYPERTRIGLYCERIDEMIA NEUROCONGENITIVE DISORDER WITH PTSD AND SOCIAL ANXIETY - sees Lore Akins at ? [facility] ASPLENIA, NEEDS SBE PROPHYLAXIS FOR ANY PROCEDURES, HISTORY OF STAPHLOCOCCUS AUREUS ENDOCARDITIS IN 2000, Hx of Depression- felt to be a side- effect of sotalol. [facility] NORMAL CBC, PLAT 184, NORMAL HAPTOGLOBIN, INR 1.0, NORMAL IRON STUDIES WITH FERRITIN OF 69. ? TOTAL BILIRUBIN 2.3, DIRECT BILIRUBIN 0.7, AST 27, ALT 42, ALKALINE PHOSPHATASE 45 ? CERULOPLASMIN NORMAL AT 31, ? HEPATITIS SEROLOGIES SHOWED IMMUNITY TO HEPATITIS A, AND LACK OF IMMUNITY TO HEPATITIS-B ? HEPATITIS-C ANTIBODY WAS NEGATIVE. ? LIVER FIBROSIS SCORE OF 0.66, LIVER FIBROSIS STAGE F3, NECROINFLAMMATORY SCORE OF 0.32 ALBUMIN 5.1 ? STOOL PANCREATIC ELASTASE GREATER THAN 500 ? RETICULOCYTE COUNT,CORRECTED 1.2 ? HEPATITIS B SURFACE ANTIBODY - NEGATIVE ? HEPATITIS C ANTIBODY - NEGATIVE ? CERULOPLASMIN - 31 - NORMAL ? HAPTOGLOBIN - 85 ? FLUOR. ANTINUCLEAR AB SCREEN (NELLY) - NEGATIVE ? HEPATITIS A ANTIBODY-IGG - POSITIVE ?IMAGING STUDIES: 12/27/21 ABD US SHOWED: LIVER: The liver is normal in size. The liver contour is normal. Parenchymal echogenicity is normal. No focal hepatic lesion. There is no intrahepatic biliary duct dilatation seen. GALLBLADDER: Normal. The gallbladder is physiologically distended without evidence of stones, sludge, polyps, wall thickening or pericholecystic fluid. FREE FLUID: None. IMPRESSION: ?Findings of situs inversus. No liver lesion. 06/05/19 ABDOMINAL ULTRASOUND WITH ELASTOG BABITA SHOWED: ? 1. Hepatic steatosis with mild heterogenous-appearing liver but no ? focal lesion seen. Rest of the abdominal ultrasound is unremarkable. ? Rnelukvx-ez-qwgnvy fibrosis, stage F3-F4. ? 2. Elastography: Moderate to severe. ?FEB, 2019 ABD US SHOWED: ? Situs inversus. ? There is hepatomegaly with hypertrophy of the left lobe of liver. The liver has a nodular contour with a diffusely heterogeneous echotexture. ? The appearance is nonspecific but this constellation of findings can be seen in the setting of cirrhosis. No biliary ductal dilatation seen. ? The pancreas is diffusely prominent with heterogeneous echotexture. This is nonspecific but can be seen in the setting of chronic pancreatitis. ? TODAY'S VISIT: Pt is accompanied by her Paternal GM. Has been feeling fine and denies any GI symptoms. Has cut down on sugars and sweets with gradual wt loss Following up with [facility] cardiology once a year. PAST VISIT: ? ? ? Continues to have fatigue - ? related to blood pressure medications. ?? ? Had an appt with her sheep sticker at [facility] - he said everything looks fine ?? ? She was seen at [facility] and scheduled for a Capsule En doscopy in / November or December. Procedure was cancelled since pt is unable to swallow pills - usually chews them. ? Denies past history of Jaundice or known FH of liver disease. ? Had open heart surgery when she was a week old - flown from [facility] to [facility] in [place] when she was a week old. Had mutiple heart surgeries - last surgery at age 5 yrs. ? Denies abdominal pain. ? Complains of fatgue on walking. ? Patient denies change in bowel habits, black stools or rectal bleeding. ? Has a BM once a day. ? Denies dysphagia, heartburn, nausea or vomiting, change in appetite or weight. ? Maternal GM had Bone cancer. ? Denies known FH of colon polyps or cancer. ?PAST GI HISTORY BY REVIEW OF MEDICAL RECORDS: ? Last seen on 05/15/19: ? Assessments ? 1. Elevated LFTs - R94.5 (Primary) ? 2. Abnormal US (ultrasound) of abdomen - R93.5 ? 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 Hepatitis serologies were negative, Ceruloplasmin, ROSA M, iron studies were normal. Liver Fibrosis Score of 0.66 and Liver Fibrosis Stage F3. ? Elevated bilirubin can be due to hemolysis - Haptoglobin was normal ? I will obtain abd US with elastography to confirm presence of cirrhosis seen on Liver Fibrosis test. ? Treatment ? 1. Elevated LFTs ? LAB: LDH ? IMAGING: US ABDOMEN COMP WITH ELASTOGRAPHY ? 2. Abnormal US (ultrasound) of abdomen ? LAB: PANCREATIC ELASTASE-1, STOOL ? LAB: LIPASE ? Follow Up ? 2 Weeks after US (Reason: FU on elevated LFTs) ? Treatment ? 1. ? Notes: ? PLEASE HAVE MEDICAL RECORDS FROM [facility] CL[facility]IC, 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 Father Diabetes Social History Household Members: Family Housing: House Alcohol intake: never Patient Tobacco Use Status: Never used Tobacco e-Cigarette/Vaping Use: Never Used Second Hand Smoke Exposure: No service: No Current occupational status: disabled Current occupational exposures/hazards: No Cognitive needs: No Hearing needs: No Vision needs: Yes Review of Systems Const All systems reviewed & are unremarkable except as noted in HPI and below Physical Exam Vital Signs: Last Vital Signs Pulse 78 01/26/23 08:34 BP 89/55 L 01/26/23 08:34 BMI result Body Mass Index 22.7 Const General: healthy appearing and no acute distress Nutritional Appearance: average body habitus Orientation/consciousness: patient oriented x3 Limitations: no limitations HEENT Head: Yes normal to inspection Ears: hearing grossly normal bilaterally Eyes Sclerae: sclerae normal Pupils: Equal, round and reactive pupils present Neck Neck: Yes normal visual inspection Chest Chest palpation & inspection: normal inspection of the chest and other (mid line scar of past surgery) Resp Effort & Inspection: normal respiratory effort Auscultation: clear to auscultation bilaterally Cardio Palpation: normal PMI Rate: regular rate Rhythm: regular rhythm Heart sounds: S1 normal heart sound present, S2 normal heart sound present and Murmur heart sound present (Mid systolic murmur aortic area) GI Palpation (GI): Soft to palpation, nontender and No hepatosplenomegaly present Auscultation: normal bowel sounds Rectal Exam - Female: deferred Skin General skin exam: no rashes or lesions noted Neuro General: patient oriented x3, gait normal and moves all extremities Cranial nerves: Yes Equal, round and reactive pupils present Psych Appearance: grossly normal Mental Status: mental status grossly normal Assessment & Plan Assessment & Plan (1) Cirrhosis of liver without ascites: Code(s): K74.60 - Unspecified cirrhosis of liver Plan 27 YF with 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 Pt was referred to GI for elevated LFTs - elevation of total bilirubin - predominently indirect, and intermittent mild elevation of ALT. Hepatitis serologies were negative, Ceruloplasmin, ROSA M, iron studies were normal. Liver Fibrosis Score of 0.66 and Liver Fibrosis Stage F3. Haptoglobin was normal Abd US with elastography confirmed presence of cirrhosis seen on Liver Fibrosis test. MELD Na SCORE HAS BEEN STABLE AT 13. Hepatitis serologies showed immunity to hepatitis A and non immune to hep B (unclear if she received hepatitis-B vaccination as an infant). Hep B vaccine given by GI RN today (1st Dose) in 01/2022 Hep B #2 vaccine given on 02/11/22. Hep B vaccine # 3 given by GI RN today (3rd dose) on 07/28/22 Patient has likely developed cirrhosis as a complication of Fontan's procedure as a result of chronic low-cardiac output state combined with increased mesenteric resistance and chronic venous congestion. Patient will be scheduled for an upper endoscopy to screen for varices if platelet count decreases to <100, 000. Records from Cardiology clinic (Last clinic vist in July 2021) were reviewed. Pt seen by [facility] (Dr Puga) at pt's GM's request so pt can be seen by Cardiology every 6 months instead of annually. She will continue to see Dr Garcia at [facility] on an annual basis. FU in 8 months - Pt to have labs checked and schedule an Abd US Orders: Orders Complete Blood Count no Diff Today K74.60 - Unspecified cirrhosis of liver Prothrombin Time INR Today K74.60 - Unspecified cirrhosis of liver US abdomen limited Today K74.60 - Unspecified cirrhosis of liver Liver Panel Today K74.60 - Unspecified cirrhosis of liver Coding Level of Care Code Est Pt Level 4 (10975) Diagnoses Cirrhosis of liver without ascites K74.60 Time Spent (min) 21
[2023-01-26 08:34] VITALS: BP 89/55; PULSE 78; BMI 22.7
== END 2023-01-26 09:18 | disposition home or self-care (01) ==
PROVIDERS: Visit Provider Internal Medicine Gastroenterology
DX: K74.60 Unspecified cirrhosis of liver (principal)
CPT/HCPCS: 99214

== ENCOUNTER → 2023-01-26 08:24 | Outpatient (BNVA) | payer OTHER, SELFPAY | PROVIDERS: Visit Provider Internal Medicine Gastroenterology | DX: K74.60 Unspecified cirrhosis of liver (principal) | CPT/HCPCS: 99212 ==

== ENCOUNTER 2023-02-22 07:21 | Outpatient (REF) | payer OTHER, SELFPAY ==
--- NOTE | ~2023-02-22 | US_ITS ---
EXAMINATION: US ABDOMEN LIMITED CLINICAL INFORMATION: Unspecified cirrhosis of liver. Screening for HCC. COMPARISON: Ultrasound abdomen complete 12/27/2021. Ultrasound abdomen limited 10/20/2020. TECHNIQUE: Real-time imaging of the left upper quadrant abdominal viscera. Known situs inversus. FINDINGS: Findings of situs inversus. PANCREAS: Normal. ABDOMINAL AORTA: The proximal segment is normal in caliber. INFERIOR VENA CAVA: Visualized portions are normal. LIVER: The liver is normal in size. The liver contour is normal. Periportal hyperechogenicity, a nonspecific finding. No focal hepatic lesion. There is no intrahepatic biliary duct dilatation seen. GALLBLADDER: Normal. The gallbladder is physiologically distended without evidence of stones, sludge, polyps, wall thickening or pericholecystic fluid. COMMON BILE DUCT: Normal in caliber measuring 0.5 cm in diameter. LEFT KIDNEY: Multiple punctate echogenic foci without definite shadowing or twinkle artifact may reflect vascular reflectors versus tiny stones. No hydronephrosis. No renal calculi or focal parenchymal lesions. The kidney measures 11.3 cm in maximum dimension. FREE FLUID: None. US/US abdomen limited IMPRESSION: 1. Periportal hyperechogenicity, a nonspecific finding, though differential etiologies could include normal variant, IBD, schistosomiasis or other etiology. No discrete liver lesion. 2. Multiple punctate echogenic foci without definite shadowing or twinkle artifact in the left kidney may reflect vascular reflectors versus tiny stones. 3. Situs inversus.
[2023-02-22 08:48] LABS: Alanine Aminotransferase 26 U/L (0-31); Albumin Level 4.8 g/dL (3.5-5.0); Alkaline Phosphatase 41 U/L (39-117); Aspartate Amino Transferase 29 U/L (5-31); Bilirubin Direct 0.7 mg/dL (0.0-0.5); Bilirubin Total 2.8 mg/dL (0.0-1.0); Total Protein 7.9 g/dL (6.5-8.0)
== END 2023-02-22 07:22 | disposition home or self-care (01) ==
LOC: HO.US 07:21
PROVIDERS: PCP Internal Medicine; Visit Provider Internal Medicine Gastroenterology
DX: K74.60 Unspecified cirrhosis of liver (principal)
CPT/HCPCS: 36415; 76705; 80076

== ENCOUNTER 2023-06-26 08:42 | Outpatient (REF) | payer OTHER, SELFPAY ==
[2023-06-26 11:36] LABS: Estimated Average Glucose 105 mg/dL; Hemoglobin A1c % 5.3 % (<6.0)
[2023-06-26 13:19] LABS: Alanine Aminotransferase 28 U/L (0-31); Anion Gap 12 (12-20); Aspartate Amino Transferase 22 U/L (5-31); Blood Urea Nitrogen 18 mg/dL (9-16); Calcium 9.4 mg/dL (8.4-10.2); Carbon Dioxide 23 mmol/L (22-29); Chloride 108 mmol/L (96-108); Cholesterol 158 mg/dL (<200); Estimated Glomerular Filt Rate > 60; Glucose Fasting 77 mg/dL (60-99); HDL Cholesterol 45 mg/dL (>40); LDL Cholesterol Calculated 77 mg/dL (<100); Potassium 4.2 mmol/L (3.3-5.1); Sodium 139 mmol/L (135-145); Triglycerides 181 mg/dL (<150); Vitamin D 25-OH Total 46.5 ng/mL (>30)
== END 2023-06-26 08:43 | disposition home or self-care (01) ==
LOC: HO.HMGCLDS 08:42
PROVIDERS: PCP Internal Medicine; Visit Provider Internal Medicine
DX: Z00.01 Encounter for general adult medical examination with abnormal findings (principal); E78.1 Pure hyperglyceridemia; Q24.9 Congenital malformation of heart, unspecified; R73.01 Impaired fasting glucose; Z86.39 Personal history of other endocrine, nutritional and metabolic disease
CPT/HCPCS: 36415; 80048; 80061; 82306; 83036; 84450; 84460

== ENCOUNTER 2023-07-10 08:13 | Outpatient (AMB) | payer OTHER, SELFPAY ==
[2023-07-10 08:19] VITALS: BP 94/62; PULSE 75; O2SAT 94; BMI 24.6
--- NOTE | 2023-07-10 08:19 | A.OFFPC_ITS ---
Vital Signs 07/10/23 08:19 Height 5 ft 3 in Weight 139 lb BMI 24.6 BP 94/62 Blood Pressure Location Rt brachial Position Sitting Pulse 75 Pulse Source Pulse Oximeter Pulse Oximetry (%) 94 Oxygen Delivery Method Room Air Intake Visit Reasons: Annual PE Intake Note: Pt is here today for her PE: Last papsmear 07/08/21 Is last menstrual period known: Yes Last menstrual period: 06/19/23 Allergies No Known Allergies Allergy (Verified 07/10/23 08:23) Medication List - Last Reconciled 07/10/23 by Sandra Stanley MD aspirin (Adult Low Dose Aspirin) 81 mg PO DAILY digoxin 125 mcg PO Q OTHER DAY lisinopril 2.5 mg PO DAILY sotalol 80 mg PO BID Tobacco use date assessed: 07/10/23 Dental Screening Dental Screen Date: 07/10/23 Did you have a dental visit in the last 12 months?: Yes Did you have a dental problem in the last 6 months where you did not have access to dental care?: No Was dental information given to patient?: Patient has dentist HPI Annual PE HPI Details 28 year-old female with 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, had a Fontan procedure done in the past , here for her annual physical exam . She has cirrhosis of liver based on recent imaging and follows with Gastroenterology. Blood pressure is good. She is in sinus rhythm. She has history of intra-atrial reentry tachycardia and has been on sotalol 80 mg p.o. b.i.d.. EKG last done by her breakfast manager showed normal QTC. She will need antibiotic prophylaxis before dental workup. Overall clinically stable. She will follow with Dr. Barraza once a year. Labs done which normal electrolytes, fasting glucose, liver enzymes, lipid levels and vitamin-D level, except for elevated triglycerides. She is up-to-date with her cervical cancer screening, goes to [facility]. She now lives her in her own apartment , and drives. 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 Father Diabetes Social History Household Members: Family Housing: House Alcohol intake: never Patient Tobacco Use Status: Never used Tobacco e-Cigarette/Vaping Use: Never Used Second Hand Smoke Exposure: No service: No Current occupational status: disabled Current occupational exposures/hazards: No Cognitive needs: No Hearing needs: No Vision needs: Yes Female Reproductive History Menstrual Date of last menstrual period: 06/19/23 Questionnaire PHQ-9 Over the last 2 weeks, how often have you been bothered by any of the following problems? 1. Little interest or pleasure in doing things: not at all 2. Feeling down, depressed, or hopeless: several days 3. Trouble falling or staying asleep, or sleeping too much: several days 4. Feeling tired or having little energy: several days 5. Poor appetite or overeating: not at all 6. Feeling bad about yourself - or that you are a failure or have let yourself or your family down: not at all 7. Trouble concentrating on things, such as reading the newspaper or watching television: not at all 8. Moving or speaking so slowly that other people could have noticed. Or the opposite - being so fidgety or restless that you have been moving around a lot more than usual: not at all 9. Thoughts that you would be better off or of hurting yourself in some way: not at all Total score: 3 Depression Screening Interpretation: Negative Depression Screening Done: Yes 48462 - PHQ-9 Billing: Yes Source: Developed by Drs. Tonny Grimm, Ksenia Delong, Roly Walker and colleagues, with an educational anayeli from [employer]. Thrive Questionnaire Date Thrive assessed: 07/10/23 I am a: Patient What is your living situation today?: I have a steady place to live Within the past 12 months, did the food you bought not last and you didn't have the money to get more?: Never true Within the past 12 months, did you worry whether your food would run out before you got money to buy more?: Never true Do you have trouble paying for medicines?: No Do you have trouble getting transportation to medical appointments?: No Do you have trouble paying your heating and electricity bill?: No Do you have trouble taking care of your child, family member or friend?: No Do you have trouble with day-to-day activities such as bathing, preparing meals, shopping, managing finances, etc.?: No Are you currently unemployed and looking for a job?: No Are you interested in more education?: No Please select the resources that you would like help with: None THRIVE Score: 0 AUDIT C Alcohol Use Questionnaire (AUDIT-C) 1. How often do you have a drink containing alcohol?: Never 3. How often do you have six or more drinks on one occasion?: Never Total Score: 0 DIMAS-7 AMB Questionnaire DIMAS-7 Date DIMAS - 7 assessed: 07/10/23 Feeling nervous, anxious, or on edge: 1 = Several days Not being able to stop or control worryin = Not at all Worrying too much about different things: 1 = Several days Trouble relaxin = Not at all Being so restless that it is hard to sit still: 0 = Not at all Becoming easily annoyed or irritable: 0 = Not at all Feeling afraid as if something awful might happen: 0 = Not at all Total DIMAS-7 score (0-4 normal; 5-9 mild; 10-14 moderate; 15-21 severe): 2 Source: Developed by Drs. Tonny Grimm, Ksenia Delong, Roly Walker and colleagues, with an educational anayeli from [employer]. Review of Systems Const Denies fever(s), Denies headache(s) and Denies weight loss Eyes Details: Goes to [place] [facility] Denies change in vision ENT Denies dysphagia, Denies vertigo, Denies dizziness, Denies headache(s), Denies nasal congestion and Denies disequilibrium Card Denies chest pain, Denies syncope, Denies leg edema, Denies lightheadedness and Denies dyspnea Resp Denies cough and Denies dyspnea GI Denies abdominal pain, Denies change in bowel habits, Denies dysphagia and Denies heartburn Denies difficulty voiding and Denies dysuria Musc Denies abnormal gait, Denies back pain, Denies arthralgias and Denies numbness Skin/Breast Denies pruritus, Denies rash and Denies jaundice Neuro Denies Abnormal speech present, Denies abnormal gait, Denies vertigo, Denies dizziness, Denies syncope, Denies headache(s), Denies focal weakness, Denies numbness, Denies seizure-like activity, Denies Sensory deficit (Neuro) and Denies disequilibrium Psych Reports no additional complaints Endo Denies cold intolerance, Denies flushing, Denies heat intolerance and Denies polydipsia John/Lymph Denies easy bleeding and Denies easy bruising Aller/Immun Reports no additional complaints Physical exam (Primary Care) Vital Signs: Last Vital Signs Pulse 75 07/10/23 08:19 BP 94/62 07/10/23 08:19 Pulse Ox 94 07/10/23 08:19 Oxygen Delivery Method Room Air 07/10/23 08:19 BMI result Body Mass Index 24.6 Tobacco/Smoking Status: Tobacco use Status Tobacco use date assessed 07/10/23 07/10/23 08:22 Patient Tobacco Use Status Never used Tobacco 07/10/23 08:22 e-Cigarette/Vaping Use Never Used 07/10/23 08:22 PHQ-9: PHQ-9 Score PHQ-9: Total score 3 07/10/23 08:30 Depression Screening Interpretation: Negative Thrive Assessment: Date of Thrive Assessment Date Thrive assessed 07/10/23 07/10/23 08:30 Const General: comfortable, no acute distress and alert Orientation/consciousness: patient oriented x3 Limitations: no limitations HENMT Head: Yes normocephalic Ears: external ears normal, TM's normal bilaterally and EAC's normal General nose exam: Normal external nose present Face and sinus: Yes face symmetric Mouth: Normal oral and palatal mucosa present and moist mucous membranes Eyes General: appearance normal, both eyes and all related structures Neck Neck: Yes full ROM, Yes no lymphadenopathy and Yes supple Carotids: no bruits Chest Breast/axilla palpation: normal palpation of the breasts and other (Healed surgical scars on mid chest) Resp Effort & Inspection: normal respiratory effort and able to speak in complete sentences Auscultation: clear to auscultation bilaterally Cardio Rate: regular rate Rhythm: regular rhythm Heart sounds: S1 normal heart sound present and S2 normal heart sound present GI Inspection: Yes normal to inspection and Yes scar (Healed surgical scar present on upper abdomen) Palpation (GI): Soft to palpation, nontender, no guarding, no masses and no pulsatile masses General: Yes no CVA tenderness Back/Spine/Pelvis Back: no CVA tenderness and No back tenderness Skin General skin exam: no rashes or lesions noted Neuro General: patient oriented x3, gait normal, tone normal, moves all extremities and no focal motor deficits Cranial nerves: Yes CN's II-XII intact bilaterally Speech: No Abnormal speech present Gait exam (Neuro): Normal gait present Sensory Exam: No Sensory deficit (Neuro) Extrem General: Yes no joint enlargement, Yes no clubbing, cyanosis or edema and Yes no calf tenderness Psych Appearance: grossly normal and well kempt Mental Status: mental status grossly normal Speech and movement: Normal speech and movement present Affect: normal affect Results Reviewed Results Reviewed: Name: Tawny Pendleton Age/Sex: 27/F : 1995 Unit#: [id number] Attend Dr: Sandra Stanley MD Re06/26/23 Status: DEP REF Location: [facility] Disch: SPEC : [id number] AMENA: 06/26/23 STATUS: COMP REQ : [id number] RECD: 06/26/23-[address]: Sandra Stanley MD COMP: 06/26/23-1319 ENTERED: 06/26/23-[address]: ORDERED: Met Prof Fast, AST, ALT, Lipid Panel, Vitamin D 25-OH Test Result Flag Reference Sodium 139 135-145 mmol/L Potassium 4.2 3.3-5.1 mmol/L CL 108 96-108 mmol/L CO2 23 22-29 mmol/L Gap 12 12-20 BUN 18 H 9-16 mg/dL Creat 0.75 0.5-1.4 mg/dL EGFR > 60 NOTE: For -[place] individuals, multiply the result by 1.210. Chronic Kidney Disease: Estimated GFR < 60 mL/min/1.73m2 Severe Kidney Disease: Estimated GFR < 15 mL/min/1.73m2 FBS 77 60-99 mg/dL CA 9.4 8.4-10.2 mg/dL AST (GOT) 22 5-31 U/L ALT (GPT) 28 0-31 U/L Triglyceride 181 H <150 mg/dL Desirable Triglyceride: less than 150 mg/dL Borderline High Triglyceride 150-199 mg/dL High Triglyceride: 200-499 mg/dL Very High Triglyceride: greater than or equal to 5OO mg/dL Cholesterol 158 <200 mg/dL Desirable Cholesterol: less than 200 mg/dL Borderline High Cholesterol: 200-239 mg/dL High Cholesterol: greater than 239 mg/dL LDL Calculated 77 <100 mg/dL Desirable LDL: less than 100 mg/dL Near Optimal/Above Optimal LDL: 110-129 mg/dL Borderline High LDL: 130-159 mg/dL High LDL: 160-189 mg/dL Very High LDL: greater than or equal to 190 mg/dL HDL 45 >40 mg/dL Desirable HDL: greater than 40 mg/dL Note: This HDL assay may give artificially low results in patients with liver disease. Vit D 25-OH Tot 46.5 >30 ng/mL Health Based Reference Values* < 20 ng/mL Deficient 20-30 ng/mL Insufficient > 30 ng/mL Sufficient Assessment and Plan Assessment & Plan (1) Annual visit for general adult medical examination with abnormal findings: Code(s): Z00.01 - Encounter for general adult medical examination with abnormal findings Plan: Reviewed recent fasting lab results with patient. Continue with regular dental visit every 6 months, needs dental prophylaxis for SBE, goes to [place] [facility] for her eye exam Take adequate calcium in diet and vitamin-D 3 at 2000 IU per cap once a day, in addition to weight-bearing exercises to help maintain good muscle tone and weight control. Instructed to do self-breast exam, , to start with yearly mammogram at age 39. Goes to [facility] for her routine cervical cance screening and pelvic exam, currently up-to-date. She is also up-to-date with all her vaccinations (2) History of congenital heart disease: Code(s): Z87.74 - Personal history of (corrected) congenital malformations of heart and circulatory system Plan: Currently on aspirin 81 mg daily, digoxin 125 mcg every other day, and on lisinopril 2.5 mg daily as well as sotalol 80 mg 1 tablet twice a day currently being followed by [facility] cardiology, Dr. Barraza once a year. (3) Hypertriglyceridemia: Code(s): E78.1 - Pure hyperglyceridemia Plan: Reviewed recent fasting lipid levels with patient which showed higher triglycerides as compared to last year. Reinforced importance of following a low-cholesterol diet and getting regular exercise. (4) Cirrhosis of liver without ascites: Code(s): K74.60 - Unspecified cirrhosis of liver Plan: Currently asymptomatic Orders: Orders Lipid Panel 1 Year E78.1 - Pure hyperglyceridemia, K74.60 - Unspecified cirr hosis of liver, Z87.74 - Personal history of (corrected) congenital malformations of heart and circulatory system Comprehensive [place]. Panel Fast 1 Year E78.1 - Pure hyperglyceridemia, K74.60 - Unspecified cirrhosis of liver, Z87.74 - Personal history of (corrected) congenital malformations of heart and circulatory system Vitamin D 25-OH Total 1 Year E78.1 - Pure hyperglyceridemia, K74.60 - Unspecified cirrhosis of liver, Z87.74 - Personal history of (corrected) congenital malformations of heart and circulatory system Coding Level of Care Code Est Pt Prev Care 18-39y([id number]) Diagnoses Annual visit for general adult medical examination with abnormal findings Z0 0.01 History of congenital heart disease Z87.74 Hypertriglyceridemia E78.1 Cirrhosis of liver without ascites K74.60
== END 2023-07-10 10:20 | disposition home or self-care (01) ==
PROVIDERS: Visit Provider Internal Medicine
DX: Z00.00 Encounter for general adult medical examination without abnormal findings (principal); Z87.74 Personal history of (corrected) congenital malformations of heart and circulatory system; E78.1 Pure hyperglyceridemia; K74.60 Unspecified cirrhosis of liver
CPT/HCPCS: 99395

== ENCOUNTER 2023-09-07 08:36 | Outpatient (AMB) | payer OTHER, SELFPAY ==
[2023-09-07 09:02] VITALS: BP 92/50; PULSE 79; BMI 23.0
--- NOTE | 2023-09-07 09:02 | MHC.OFFVIS ---
Vital Signs 09/07/23 09:02 Height 5 ft 3 in Weight 130 lb BMI 23.0 BP 92/50 L Blood Pressure Location Lt brachial Position Sitting Pulse 79 Intake Visit Reasons: 8 month follow up Intake Note: Patient follow up for US results Patient denies any Gi issues, patient did not did her blood test. 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 Pt is status post Fontan's procedure after . Patient has likely developed cirrhosis as a complication of Fontan's procedure as a result of chronic low-cardiac output state combined with increased mesenteric resistance and chronic venous congestion. CHRONIC ILLNESSES:?ATRIAL FIBRILLATION/ FLUTTER S/P CARDIOVERSION 05/21/12 DONE IN [place] AND MAINTAINED ON SOTALOL - CURRENTLY FOLLOWED BY DR. 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 ? INTA- ATRIAL TACHYCARDIA - FOLLOWED VY DR. GARCIA, HX OF DEPRESSION, HYPERTRIGLYCERIDEMIA NEUROCONGENITIVE DISORDER WITH PTSD AND SOCIAL ANXIETY - sees Lore Akins at ? [facility] ASPLENIA, NEEDS SBE PROPHYLAXIS FOR ANY PROCEDURES, HISTORY OF STAPHLOCOCCUS AUREUS ENDOCARDITIS IN 2000, Hx of Depression- felt to be a side-effect of sotalol. [facility]/19 NORMAL CBC, PLAT 184, NORMAL HAPTOGLOBIN, INR 1.0, NORMAL IRON STUDIES WITH FERRITIN OF 69. ? TOTAL BILIRUBIN 2.3, DIRECT BILIRUBIN 0.7, AST 27, ALT 42, ALKALINE PHOSPHATASE 45 ? CERULOPLASMIN NORMAL AT 31, ? HEPATITIS SEROLOGIES SHOWED IMMUNITY TO HEPATITIS A, AND LACK OF IMMUNITY TO HEPATITIS-B ? HEPATITIS-C ANTIBODY WAS NEGATIVE. ? LIVER FIBROSIS SCORE OF 0.66, LIVER FIBROSIS STAGE F3, NECROINFLAMMATORY SCORE OF 0.32 ALBUMIN 5.1 ? STOOL PANCREATIC ELASTASE GREATER THAN 500 ? RETICULOCYTE COUNT,CORRECTED 1.2 ? HEPATITIS B SURFACE ANTIBODY - NEGATIVE ? HEPATITIS C ANTIBODY - NEGATIVE ? CERULOPLASMIN - 31 - NORMAL ? HAPTOGLOBIN - 85 ? FLUOR. ANTINUCLEAR AB SCREEN (NELLY) - NEGATIVE ? HEPATITIS A ANTIBODY-IGG - POSITIVE ?IMAGING STUDIES: 02/2023 ABD US SHOWED: 1. Periportal hyperechogenicity, a nonspecific finding, though differential etiologies could include normal variant, IBD, schistosomiasis or other etiology. No discrete liver lesion. 2. Multiple punctate echogenic foci without definite shadowing or twinkle artifact in the left kidney may reflect vascular reflectors versus tiny stones. 3. Situs inversus. 12/27/21 ABD US SHOWED: LIVER: The liver is normal in size. The liver contour is normal. Parenchymal echogenicity is normal. No focal hepatic lesion. There is no intrahepatic biliary duct dilatation seen. GALLBLADDER: Normal. The gallbladder is physiologically distended without evidence of stones, sludge, polyps, wall thickening or pericholecystic fluid. FREE FLUID: None. IMPRESSION: ?Findings of situs inversus. No liver lesion. 06/05/19 ABDOMINAL ULTRASOUND WITH ELASTOGRAPHY SHOWED:? 1. Hepatic steatosis with mild heterogenous-appearing liver but no ?focal lesion seen. Rest of the abdominal ultrasound is unremarkable. ?Twdryjib-gn-huybbd fibrosis, stage F3-F4. 2. Elastography: Moderate to severe. ?FEB, 2019 ABD US SHOWED: ? Situs inversus. ? There is hepatomegaly with hypertrophy of the left lobe of liver. The liver has a nodular contour with a diffusely heterogeneous echotexture. ? The appearance is nonspecific but this constellation of findings can be seen in the setting of cirrhosis. No biliary ductal dilatation seen. ? The pancreas is diffusely prominent with heterogeneous echotexture. This is nonspecific but can be seen in the setting of chronic pancreatitis. ? TODAY'S VISIT: Has been feeling fine and denies any GI symptoms. Denies abdominal pain or lower extremity edema. Denies any change in symptoms of fatigue. Has cut down on sugars and sweets with gradual wt loss Following up with [facility] once a year. PAST VISIT: ? ? ? Continues to have fatigue - ? related to blood pressure medications. ?? ? Had an appt with her medicaid eligibility specialist at [facility] - he said everything looks fine ?? ? She was seen at [facility] and scheduled for a Capsule Endoscopy in / November or December. Procedure was cancelled since pt is unable to swallow pills - usually chews them. ? Denies past history of Jaundice or known FH of liver disease. ? Had open heart surgery when she was a week old - flown [facility] to [facility] in [place] when she was a week old. Had mutiple heart surgeries - last surgery at age 5 yrs. ? Denies abdominal pain. ? Complains of fatgue on walking. ? Patient denies change in bowel habits, black stools or rectal bleeding. ? Has a BM once a day. ? Denies dysphagia, heartburn, nausea or vomiting, change in appetite or weight. ? Maternal GM had Bone cancer. ? Denies known FH of colon polyps or cancer. ?PAST GI HISTORY BY REVIEW OF MEDICAL RECORDS: ? Last seen on 05/15/19: ? Assessments ? 1. Elevated LFTs - R94.5 (Primary) ? 2. Abnormal US (ultrasound) of abdomen - R93.5 ? 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 Hepatitis serologies were negative, Ceruloplasmin, ROSA M, iron studies were normal. Liver Fibrosis Score of 0.66 and Liver Fibrosis Stage F3. ? Elevated bilirubin can be due to hemolysis - Haptoglobin was normal ? I will obtain abd US with elastography to confirm presence of cirrhosis seen on Liver Fibrosis test. ? Treatment ? 1. Elevated LFTs ? LAB: LDH ? IMAGING: US ABDOMEN COMP WITH ELASTOGRAPHY ? 2. Abnormal US (ultrasound) of abdomen ? LAB: PANCREATIC ELASTASE-1, STOOL ? LAB: LIPASE ? Follow Up ? 2 Weeks after US (Reason: FU on elevated LFTs) ? Treatment ? 1. ? Notes: ? 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 Father Diabetes Social History Household Members: Family Housing: House Alcohol intake: never Patient Tobacco Use Status: Never used Tobacco e-Cigarette/Vaping Use: Never Used Second Hand Smoke Exposure: No service: No Current occupational status: disabled Current occupational exposures/hazards: No Cognitive needs: No Hearing needs: No Vision needs: Yes Review of Systems Const All systems reviewed & are unremarkable except as noted in HPI and below Physical Exam Vital Signs: Last Vital Signs Pulse 79 09/07/23 09:02 BP 92/50 L 09/07/23 09:02 BMI result Body Mass Index 23.0 Const General: healthy appearing and no acute distress Nutritional Appearance: average body habitus Orientation/consciousness: patient oriented x3 Limitations: no limitations HEENT Head: Yes normal to inspection Ears: hearing grossly normal bilaterally Eyes Sclerae: sclerae normal Pupils: Equal, round and reactive pupils present Neck Neck: Yes normal visual inspection Chest Chest palpation & inspection: normal inspection of the chest and other (mid line scar of past surgery) Resp Effort & Inspection: normal respiratory effort Auscultation: clear to auscultation bilaterally Cardio Palpation: normal PMI Rate: regular rate Rhythm: regular rhythm Heart sounds: S1 normal heart sound present, S2 normal heart sound present and Murmur heart sound present (Mid systolic murmur aortic area) GI Palpation (GI): Soft to palpation, nontender and No hepatosplenomegaly present Auscultation: normal bowel sounds Rectal Exam - Female: deferred Skin General skin exam: no rashes or lesions noted Neuro General: patient oriented x3, gait normal and moves all extremities Cranial nerves: Yes Equal, round and reactive pupils present Psych Appearance: grossly normal Mental Status: mental status grossly normal Assessment & Plan Assessment & Plan (1) Cirrhosis of liver without ascites: Code(s): K74.60 - Unspecified cirrhosis of liver Category: Medical Plan 28 YF with 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 Pt was referred to GI for elevated LFTs - elevation of total bilirubin - predominently indirect, and intermittent mild elevation of ALT. Hepatitis serologies were negative, Ceruloplasmin, ROSA M, iron studies were normal. Liver Fibrosis Score of 0.66 and Liver Fibrosis Stage F3. Haptoglobin was normal Abd US with elastography confirmed presence of cirrhosis seen on Liver Fibrosis test. MELD Na SCORE HAS BEEN STABLE AT 13. Hepatitis serologies showed immunity to hepatitis A and non immune to hep B (unclear if she received hepatitis-B vaccination as an infant). Hep B vaccine given by GI RN today (1st Dose) in 01/2022 Hep B #2 vaccine given on 02/11/22. Hep B vaccine # 3 given by GI RN today (3rd dose) on 07/28/22 Patient has likely developed cirrhosis as a complication of Fontan's procedure as a result of chronic low-cardiac output state combined with increased mesenteric resistance and chronic venous congestion. Patient will be scheduled for an upper endoscopy to screen for varices if platelet count decreases to <100, 000. Records from Cardiology clinic (Last clinic vist in July 2021) were reviewed. Pt seen by [facility] (Dr Puga) at pt's GM's request so pt can be seen by Cardiology every 6 months instead of annually. She will continue to see Dr Garcia at [facility] on an annual basis. FU in 6 months - Pt to have an Abd US with Elastography in Jan or Feb, 2024 Orders: Orders US abdomen dumont w elastography Today K74.60 - Unspecified cirrhosis of liver Coding Level of Care Code Est Pt Level 3 (47256) Diagnoses Cirrhosis of liver without ascites K74.60 Time Spent (min) 18
== END 2023-09-07 09:47 | disposition home or self-care (01) ==
PROVIDERS: PCP Internal Medicine; Visit Provider Internal Medicine Gastroenterology
DX: K74.60 Unspecified cirrhosis of liver (principal)
CPT/HCPCS: 99213

== ENCOUNTER → 2023-09-07 08:36 | Outpatient (BNVA) | payer OTHER, SELFPAY | PROVIDERS: PCP Internal Medicine; Visit Provider Internal Medicine Gastroenterology | DX: K74.60 Unspecified cirrhosis of liver (principal); R94.5 Abnormal results of liver function studies; R93.5 Abnormal findings on diagnostic imaging of other abdominal regions, including retroperitoneum | CPT/HCPCS: 99212 ==

== ENCOUNTER 2023-09-29 11:22 | Outpatient (REF) | payer OTHER, SELFPAY ==
--- NOTE | ~2023-09-29 | US_ITS ---
EXAMINATION: US ABDOMEN LIMITED WITH LIVER ELASTOGRAPHY CLINICAL INFORMATION: Cirrhosis. Situs inversus. COMPARISON: 02/22/2023 TECHNIQUE: Real-time imaging of the abdominal viscera. Noninvasive ultrasound liver fibrosis assessment is performed using Handy ElastPQ point quantification shear wave elastography (2D-SWE) with a C5-2 MHz transducer. Multiple elastography samples are obtained. FINDINGS: PANCREAS: Mostly obscured. LIVER: Nodular surface contour of the liver. Coarsened echotexture. Poor acoustic penetration limits evaluation and detection of underlying lesions. No intrahepatic biliary duct dilatation. The right lobe measures 13.8 cm in length. The left lobe measures 16.5 cm in length. Portal flow is towards the liver (hepatopetal). Shear wave liver elastography median stiffness is 1.67 m/s (reference: normal median stiffness is 1.3 m/s or less). IQR/median stiffness to assess sampling precision is 0.44 (reference: good quality data set is IQR/median stiffness of 0.15 or less). GALLBLADDER: The gallbladder is physiologically distended without evidence of stones, sludge, polyps, wall thickening or pericholecystic fluid. COMMON BILE DUCT: Normal in caliber measuring 0.4 cm in diameter. LEFT KIDNEY: No hydronephrosis. No renal calculi or focal parenchymal lesions. The kidney measures 11.8 cm in maximum dimension. FREE FLUID: None. US/US abdomen dumont w elastography IMPRESSION: 1. Hepatic cirrhosis. 2. Liver elastography: Liver Stiffness 1.7-2.1 m/s: Suggestive of compensated advanced chronic liver disease but need further test for confirmation. IQR/Median value over 0.15 implies a poor quality data set. REFERENCE: Society of Radiologists in Ultrasound Liver Stiffness Thresholds (2020): LIVER STIFFNESS THRESHOLDS: *Liver Stiffness equal or less than 1.3 m/s: High probability of being normal. *Liver Stiffness less than 1.7 m/s: In the absence of other known clinical signs, rules out compensated advanced chronic liver disease. *Liver Stiffness 1.7-2.1 m/s: Suggestive of compensated advanced chronic liver disease but need further test for confirmation. *Liver Stiffness over 2.1 m/s: Rules in compensated advanced chronic liver disease. *Liver Stiffness over 2.4 m/s: Suggestive of clinically significant portal hypertension. QUALITY OF DATA SET: *IQR/Median value equal or less than 0.15 implies a quality data set. *IQR/Median value over 0.15 implies a poor quality data set. SIGNIFICANT CHANGE FROM PRIOR EXAM: Significant change if liver stiffness measurement is 10% or greater from prior exam. OTHER CONSIDERATIONS: The stage of liver fibrosis may be overestimated in the setting of acute hepatitis, liver inflammation, elevated liver function tests, hepatic vascular congestion, obstructive cholestasis, non-fasting state, and infiltrative diseases such as amyloidosis and lymphoma. In some patients with NAFLD, the liver stiffness thresholds for compensated advanced chronic liver disease may be lower. In causes other than viral hepatitis and NAFLD, liver stiffness thresholds are not well established.
== END 2023-09-29 11:23 | disposition home or self-care (01) ==
LOC: HO.US 11:22
PROVIDERS: PCP Internal Medicine; Visit Provider Internal Medicine Gastroenterology
DX: K74.60 Unspecified cirrhosis of liver (principal)
CPT/HCPCS: 76705; 76981

== ENCOUNTER 2023-12-20 12:39 | Outpatient (AMB) | payer OTHER, SELFPAY ==
--- NOTE | 2023-12-20 13:02 | A.OFFVIS_ITS ---
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 Barraza. She started seen Gastroenterology at [place] for cirrhosis of liver as a potential complication of Fontan procedure. 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 Barraza once a year. She has dextrocardia, hypoplastic left heart for which she had unifocalization of pulmonary arteries, insertion of a Kyleigh-Taussig shunt and placement of left ventricle to aortic conduit in July 1994 at [facility]. She had revision of Kyleigh-Taussig shunt with right pulmonary artery arterioplasty on 1994. She had a balloon valvuloplasty of the left pulmonary artery with a 4 mm balloon and right pulmonary artery with a 5.5 mm balloon in September 1994. Subsequently had a takedown of the right Kyleigh-Taussig shunt, bilateral bidirectional Ti was placed and take down a left ventricle to aortic conduit and replacement of left ventricle congruent from left ventricle to pulmonary artery with a 12 mm aortic homograft in October 1994. She had closure of mitral valve, enlargement of central pulmonary arteries and lateral tunnel fenestrated Fontan procedure in September 2000. 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 She had closure of Fontan fenestration with 17 mm cardioSeal device in July 2002. She has been on sotalol for intra atrial reentrant tachycardia. She has been seeing Dr. Costa for cirrhosis of liver which is potential complication of Fontan. She also saw Dr. Barraza in October 2022. She is denying any palpitations. She has no chest pains or shortness of breath. She is on disability. She has us treadmill at home and exercises regularly without any significant issues. Taking medications regularly including sotalol. QTC within normal limits. No peripheral edema. 12/20/23: She is here for follow-up. She has been doing well. She said she follows with GI and was told that things are stable. She also saw Dr. Barraza in October. She is trying to go to gym and exercise regularly and is doing exercise with some weights and treadmill. No symptoms/signs of heart failure. No anginal symptoms. No palpitations. 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 Father Diabetes Social History Household Members: Family Housing: House Alcohol intake: never Patient Tobacco Use Status: Never used Tobacco e-Cigarette/Vaping Use: Never Used Second Hand Smoke Exposure: No service: No Current occupational status: disabled Current occupational exposures/hazards: No Cognitive needs: No Hearing needs: No Vision needs: Yes Review of Systems Const Denies chills, Denies fatigue, Denies fever(s), Denies frequent falls, Denies weakness, Denies weight gain and Denies weight loss ENT Denies dizziness Card Denies chest pain, Denies leg edema, Denies lightheadedness, Denies palpitations, Denies dyspnea and Denies dyspnea on exertion Resp Denies cough, Denies dyspnea and Denies dyspnea on exertion GI Denies hematochezia Musc Denies abnormal gait, Denies muscle weakness, Denies numbness, Denies radiating pain into limb and Denies tingling Neuro Denies abnormal gait, Denies dizziness, Denies frequent falls, Denies numbness, Denies tingling and Denies weakness Endo Denies fatigue and Denies palpitations Physical Exam Vital Signs: Last Vital Signs Pulse 78 12/20/23 13:03 BP 95/62 12/20/23 13:03 BMI result Body Mass Index 25.3 GENERAL APPEARANCE: in no acute distress, pleasant. NECK: no carotid bruit, no jugular venous distention. SKIN: no suspicious lesions, warm and dry. HEART: Mid systolic murmur aortic area, regular rate and rhythm. LUNGS: clear to auscultation bilaterally. ABDOMEN: soft, nontender. EXTREMITIES: no edema. PERIPHERAL PULSES: equal. NEUROLOGIC: No gross deficits, AAO X 3 Office Procedures EKG Details: Ectopic atrial rhythm with premature ventricular complexes in a bigeminy pattern, can not rule out anterolateral infarct, QTC 440 milliseconds. [id number], Complete Assessment & Plan Assessment & Plan (1) History of congenital heart disease: Code(s): Z87.74 - Personal history of (corrected) congenital malformations of heart and circulatory system Category: Medical Plan Pleasant 28 year female with complex congenital heart disease status post corrective surgery. Clinically asymptomatic. Her EKGs showing bigeminy currently with potentially ectopic atrial rhythm. She is on sotalol and digoxin q.48h. We will check some basic labs including electrolytes and digoxin level. Clinically she is doing well and has no symptoms. She is actually going to gym and exercising regularly. I have advised her to continue exercise as recommended to her. Follow-up with us in 1 year. I will review labs and if there is any concern I will reach out to her. Thank you for allowing me to participate in the care of your patient. Please feel free to contact me if you have any questions. Orders: Orders Basic Metabolic Panel Today Z87.74 - Personal history of (corrected) congenital malformations of heart and circulatory system B Type Natriuretic Peptide Today Z87.74 - Personal history of (corrected) congenital malformations of heart and circulatory system Liver Panel Today Z87.74 - Personal history of (corrected) congenital malformations of heart and circulatory system Potassium Today Z87.74 - Personal history of (corrected) congenital malformations of heart and circulatory system Magnesium Today Z87.74 - Personal history of (corrected) congenital malformations of heart and circulatory system Digoxin Today Z87.74 - Personal history of (corrected) congenital malformations of heart and circulatory system Coding Level of Care Code Est Pt Level 4 (77013) Diagnoses History of congenital heart disease Z87.74 CPT Codes EKG - CPT: 24527-[id number], Complete ([id number])
[2023-12-20 13:03] VITALS: BP 95/62; PULSE 78; BMI 25.3
== END 2023-12-20 13:31 | disposition home or self-care (01) ==
PROVIDERS: PCP Internal Medicine; Visit Provider Internal Medicine Cardiovascular Disease
DX: Z87.74 Personal history of (corrected) congenital malformations of heart and circulatory system (principal)
CPT/HCPCS: 93010; 99214

== ENCOUNTER 2023-12-20 12:39 | Outpatient (REF) | payer OTHER, SELFPAY ==
[2023-12-20 14:37] LABS: B Type Natriuretic Peptide 16 pg/mL (<100)
[2023-12-20 15:17] LABS: Alanine Aminotransferase 23 U/L (0-31); Albumin Level 4.7 g/dL (3.5-5.0); Alkaline Phosphatase 42 U/L (39-117); Anion Gap 11 (12-20); Aspartate Amino Transferase 22 U/L (5-31); Bilirubin Direct 0.8 mg/dL (0.0-0.5); Bilirubin Total 3.2 mg/dL (0.0-1.0); Blood Urea Nitrogen 12 mg/dL (9-16); Calcium 10.1 mg/dL (8.4-10.2); Carbon Dioxide 23 mmol/L (22-29); Chloride 108 mmol/L (96-108); Estimated Glomerular Filt Rate > 60; Glucose Random 96 mg/dL (60-115); Potassium 4.2 mmol/L (3.3-5.1); Sodium 138 mmol/L (135-145); Total Protein 7.4 g/dL (6.5-8.0)
[2023-12-20 15:28] LABS: Digoxin 0.2 ng/mL (0.8-2.0)
== END 2023-12-20 12:40 | disposition home or self-care (01) ==
LOC: HO.LAB 12:39
PROVIDERS: PCP Internal Medicine; Visit Provider Internal Medicine Cardiovascular Disease
DX: Z87.74 Personal history of (corrected) congenital malformations of heart and circulatory system (principal)
CPT/HCPCS: 36415; 80048; 80076; 80162; 83735; 83880; 93005; 99212

== ENCOUNTER 2024-01-16 08:40 | Outpatient (REF) | payer OTHER, SELFPAY ==
[2024-01-16 10:21] LABS: Anion Gap 13 (12-20); Blood Urea Nitrogen 11 mg/dL (9-16); Calcium 9.9 mg/dL (8.4-10.2); Carbon Dioxide 23 mmol/L (22-29); Chloride 108 mmol/L (96-108); Cholesterol 178 mg/dL (<200); Estimated Glomerular Filt Rate > 60; Glucose Fasting 88 mg/dL (60-99); HDL Cholesterol 40 mg/dL (>40); LDL Cholesterol Calculated 92 mg/dL (<100); Potassium 4.1 mmol/L (3.3-5.1); Sodium 140 mmol/L (135-145); Triglycerides 231 mg/dL (<150)
== END 2024-01-16 08:41 | disposition home or self-care (01) ==
LOC: HO.HMGCLDS 08:40
PROVIDERS: PCP Internal Medicine; Visit Provider Internal Medicine
DX: E78.1 Pure hyperglyceridemia (principal); Q89.3 Situs inversus
CPT/HCPCS: 36415; 80048; 80061

== ENCOUNTER 2024-01-18 10:46 | Outpatient (AMB) | payer OTHER, SELFPAY ==
[2024-01-18 11:34] VITALS: BP 90/74; PULSE 78; O2SAT 92; BMI 25.4
--- NOTE | 2024-01-18 11:34 | A.OFFPC_ITS ---
Vital Signs 01/18/24 11:34 Height 5 ft 3 in Weight 143 lb 2 oz BMI 25.4 BP 90/74 Blood Pressure Location Lt brachial Position Sitting Pulse 78 Pulse Source Pulse Oximeter Pulse Oximetry (%) 92 Oxygen Delivery Method Room Air Intake Visit Reasons: FollowUp Allergies No Known Allergies Allergy (Verified 01/18/24 12:18) Medication List - Last Reconciled 01/18/24 by Sandra Stanley MD aspirin (Adult Low Dose Aspirin) 81 mg PO DAILY digoxin 125 mcg PO Q OTHER DAY lisinopril 2.5 mg PO DAILY sotalol 80 mg PO BID Tobacco use date assessed: 01/18/24 Dental Screening Dental Screen Date: 01/18/24 Did you have a dental visit in the last 12 months?: Yes Did you have a dental problem in the last 6 months where you did not have access to dental care?: No Was dental information given to patient?: Patient has dentist HPI FollowUp HPI Details 28 year-old female with 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, had a Fontan procedure done in the past , here for a follow-up . She has cirrhosis of liver based on recent imaging and follows with Gastroenterology. Blood pressure is good. She is in sinus rhythm. She has history of intra-atrial reentry tachycardia and has been on sotalol 80 mg p.o. b.i.d.. Recent fasting labs showed normal electrolytes, , fasting blood sugar, but fasting lipids showed elevated triglycerides higher than last check. She states that she has been snacking more than usual and has not been getting any regular exercise. She is also complaining of feeling very depressed, has recurrent anxiety attacks. She is now living in her own apartment but does not have a car and does not have many friends in the area. Only relative she has in the state is her grandmother. 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 Father Diabetes Social History Household Members: Family Housing: House Alcohol intake: never Patient Tobacco Use Status: Never used Tobacco e-Cigarette/Vaping Use: Never Used Second Hand Smoke Exposure: No service: No Current occupational status: disabled Current occupational exposures/hazards: No Cognitive needs: No Hearing needs: No Vision needs: Yes Questionnaire PHQ-9 Over the last 2 weeks, how often have you been bothered by any of the following problems? 1. Little interest or pleasure in doing things: not at all 2. Feeling down, depressed, or hopeless: several days 3. Trouble falling or staying asleep, or sleeping too much: more than half the days 4. Feeling tired or having little energy: several days 5. Poor appetite or overeating: several days 6. Feeling bad about yourself - or that you are a failure or have let yourself or your family down: not at all 7. Trouble concentrating on things, such as reading the newspaper or watching television: not at all 8. Moving or speaking so slowly that other people could have noticed. Or the opposite - being so fidgety or restless that you have been moving around a lot m ore than usual: not at all 9. Thoughts that you would be better off or of hurting yourself in some way: not at all Total score: 5 Depression Screening Interpretation: Positive (Started on buspirone 5 mg 1 tablet twice a day and referred for therapy) Depression Screening Follow-up: New Medication prescribed and Community Mental Health Worker F/U Depression Screening Done: Yes 05288 - PHQ-9 Billing: Yes Source: Developed by Drs. Tonny Grimm, Ksenia Delong, Roly Walker and colleagues, with an educational anayeli from [employer]. Thrive Questionnaire Date Thrive assessed: 10/17/24 I am a: Patient What is your living situation today?: I have a steady place to live Within the past 12 months, did the food you bought not last and you didn't have the money to get more?: Never true Within the past 12 months, did you worry whether your food would run out before you got money to buy more?: Never true Do you have trouble paying for medicines?: No Do you have trouble getting transportation to medical appointments?: No Do you have trouble paying your heating and electricity bill?: No Do you have trouble taking care of your child, family member or friend?: No Do you have trouble with day-to-day activities such as bathing, preparing meals, shopping, managing finances, etc.?: No Are you currently unemployed and looking for a job?: No Are you interested in more education?: No Please select the resources that you would like help with: None Currently or been in a relationship where the following occur: No concerns reported THRIVE Score: 0 AUDIT C Alcohol Use Questionnaire (AUDIT-C) 1. How often do you have a drink containing alcohol?: Never 3. How often do you have six or more drinks on one occasion?: Never Total Score: 0 Score Reviewed/Action Taken: Yes DIMAS-7 AMB Questionnaire DIMAS-7 Date DIMAS - 7 assessed: 01/18/24 Feeling nervous, anxious, or on edge: 1 = Several days Not being able to stop or control worryin = Several days Worrying too much about different things: 0 = Not at all Trouble relaxin = Not at all Being so restless that it is hard to sit still: 0 = Not at all Becoming easily annoyed or irritable: 0 = Not at all Feeling afraid as if something awful might happen: 1 = Several days Total DIMAS-7 score (0-4 normal; 5-9 mild; 10-14 moderate; 15-21 severe): 3 Source: Developed by Drs. Tonny Grimm, Ksenia Delong, Roly Walker and colleagues, with an educational anayeli from [employer]. DIMAS-7 Assessment Billing DIMAS-7 Assessment Tool: DIMAS-7 Assessment 47330 Review of Systems Const Denies chills, Denies fatigue, Denies fever(s), Denies frequent falls and Denies weakness ENT Denies dizziness Card Denies chest pain, Denies leg edema, Denies lightheadedness, Denies palpitations, Denies dyspnea and Denies dyspnea on exertion Resp Denies cough, Denies dyspnea and Denies dyspnea on exertion GI Reports no additional complaints Musc Denies abnormal gait, Denies muscle weakness and Denies numbness Neuro Denies abnormal gait, Denies dizziness, Denies frequent falls, Denies numbness and Denies weakness Psych Reports as per HPI Endo Denies fatigue and Denies palpitations Physical exam (Primary Care) Vital Signs: Last Vital Signs Pulse 78 01/18/24 11:34 BP 90/74 01/18/24 11:34 Pulse Ox 92 01/18/24 11:34 Oxygen Delivery Method Room Air 01/18/24 11:34 BMI result Body Mass Index 25.4 Tobacco/Smoking Status: Tobacco use Status Tobacco use date assessed 01/18/24 01/18/24 11:35 Patient Tobacco Use Status Never used Tobacco 01/18/24 11:35 e-Cigarette/Vaping Use Never Used 01/18/24 11:35 PHQ-9: PHQ-9 Score PHQ-9: Total score 5 01/18/24 12:19 Depression Screening Interpretation: Positive (Started on buspirone 5 mg 1 tablet twice a day and referred for therapy) Depression Screening Follow-up: New Medication prescribed and Community Mental Health Worker F/U Thrive Assessment: Date of Thrive Assessment Date Thrive assessed 01/18/24 01/18/24 11:35 Currently or been in a relationship where the following occur: No concerns reported Const General: comfortable, no acute distress and alert Orientation/consciousness: patient oriented x3 [facility] Head: Yes normocephalic Ears: external ears normal, TM's normal bilaterally and EAC's normal General nose exam: Normal external nose present Face and sinus: Yes face symmetric Mouth: Normal oral and palatal mucosa present and moist mucous membranes Eyes General: appearance normal, both eyes and all related structures Neck Neck: Yes full ROM, Yes no lymphadenopathy and Yes supple Carotids: no bruits Resp Effort & Inspection: normal respiratory effort and able to speak in complete sen tences Auscultation: clear to auscultation bilaterally Cardio Rate: regular rate Rhythm: regular rhythm Heart sounds: S1 normal heart sound present and S2 normal heart sound present Skin General skin exam: no rashes or lesions noted Neuro General: patient oriented x3, gait normal, tone normal, moves all extremities and no focal motor deficits Cranial nerves: Yes CN's II-XII intact bilaterally Gait exam (Neuro): Normal gait present Extrem General: Yes no joint enlargement, Yes no clubbing, cyanosis or edema and Yes no calf tenderness Psych Appearance: grossly normal and well kempt Mental Status: mental status grossly normal Speech and movement: Slowed movement present (Neuro) Affect: Blunted affect present Attitude: cooperative Thought process: Normal thought process present Results Reviewed Results Reviewed: Name: Tawny Pendleton Age/Sex: 28/F : 1995 Unit#: [id number] Attend Dr: Sandra Stanley MD Re01/16/24 Status: DEP [facility] Disch: SPEC : [id number] AMENA: 01/16/24 STATUS: COMP REQ : [id number] RECD: 01/16/[address]: Sandra Stanley MD COMP: 01/16/24 ENTERED: 01/16/[address] [facility] [address]: ORDERED: Met Prof Fast, Lipid Panel Test Result Flag Reference Sodium 140 135-145 mmol/L Potassium 4.1 3.3-5.1 mmol/L CL 108 96-108 mmol/L CO2 23 22-29 mmol/L Gap 13 12-20 BUN 11 9-16 mg/dL Creat 0.82 0.5-1.4 mg/dL EGFR > 60 NOTE: For -Filipino individuals, multiply the result by 1.210. Chronic Kidney Disease: Estimated GFR < 60 mL/min/1.73m2 Severe Kidney Disease: Estimated GFR < 15 mL/min/1.73m2 FBS 88 60-99 mg/dL CA 9.9 8.4-10.2 mg/dL Triglyceride 231 H <150 mg/dL Desirable Triglyceride: less than 150 mg/dL Borderline High Triglyceride 150-199 mg/dL High Triglyceride: 200-499 mg/dL Very High Triglyceride: greater than or equal to 5OO mg/dL Cholesterol 178 <200 mg/dL Desirable Cholesterol: less than 200 mg/dL Borderline High Cholesterol: 200-239 mg/dL High Cholesterol: greater than 239 mg/dL LDL Calculated 92 <100 mg/dL Desirable LDL: less than 100 mg/dL Near Optimal/Above Optimal LDL: 110-129 mg/dL Borderline High LDL: 130-159 mg/dL High LDL: 160-189 mg/dL Very High LDL: greater than or equal to 190 mg/dL HDL 40 L >40 mg/dL Desirable HDL: greater than 40 mg/dL Note: This HDL assay may give artificially low results in patients with liver disease. Coding Level of Care Code Est Pt Level 4 (88391) Diagnoses Depression with anxiety F41.8 Hypertriglyceridemia E78.1 Additional Codes DIMAS-7 Assessment Billing - DIMAS-7 Assessment Tool: DIMAS-7 Assessment 51742 ([id number]) Assessment & Plan Assessment & Plan (1) Depression with anxiety: Code(s): F41.8 - Other specified anxiety disorders Category: Medical Plan: Will start on buspirone 5 mg per tablet take 1 tablet twice a day, and referred for therapy. Will see her back for follow-up in 4 weeks via telehealth (2) Hypertriglyceridemia: Code(s): E78.1 - Pure hyperglyceridemia Category: Medical Plan: Advised adherence to healthy eating habits coming cutting back on lot of processed foods, potato chips snacking and sugary drinks, encouraged to start doing regular exercise at least 15 minute brisk walk daily Medications: New buspirone 5 mg PO BID 60 tabs 1RF F41.8 - Other specified anxiety disorders
== END 2024-01-18 15:41 | disposition home or self-care (01) ==
PROVIDERS: PCP Internal Medicine; Visit Provider Internal Medicine
DX: F41.8 Other specified anxiety disorders (principal); E78.1 Pure hyperglyceridemia

== ENCOUNTER → 2024-01-18 10:46 | Outpatient (BNVA) | payer OTHER, SELFPAY | PROVIDERS: PCP Internal Medicine; Visit Provider Internal Medicine | DX: F41.8 Other specified anxiety disorders (principal); E78.1 Pure hyperglyceridemia | CPT/HCPCS: 96127; 99212 ==

== ENCOUNTER 2024-02-16 10:43 | Outpatient (AMB) | payer OTHER, SELFPAY ==
--- NOTE | 2024-02-16 10:41 | MHC.PC.OV ---
Intake Visit Reasons: TV 4 week follow up Intake Note: Pt is having a TH visit for her 4weeks f/u on buspirone Allergies No Known Allergies Allergy (Verified 02/16/24 10:50) Medication List - Last Reconciled 02/16/24 by Sandra Stanley MD aspirin (Adult Low Dose Aspirin) 81 mg PO DAILY buspirone 5 mg PO BID digoxin 125 mcg PO Q OTHER DAY lisinopril 2.5 mg PO DAILY sotalol 80 mg PO BID Tobacco use date assessed: 02/16/24 Dental Screening Dental Screen Date: 02/16/24 Did you have a dental visit in the last 12 months?: Yes Did you have a dental problem in the last 6 months where you did not have access to dental care?: No Was dental information given to patient?: Patient has dentist HPI TV 4 week follow up HPI Details 28-year-old lady with history of depression and anxiety, started on buspirone 5 mg taken 1 tablet twice a day 4 weeks ago, here today for follow-up. Patient states that her mood is better, with less frequent anxiety attacks. Denies any adverse effects from the medication, and would like to continue present dose. 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 Father Diabetes Social History Household Members: Family Housing: House Alcohol intake: never Patient Tobacco Use Status: Never used Tobacco e-Cigarette/Vaping Use: Never Used Second Hand Smoke Exposure: No service: No Current occupational status: disabled Current occupational exposures/hazards: No Cognitive needs: No Hearing needs: No Vision needs: Yes Questionnaire PHQ-9 Over the last 2 weeks, how often have you been bothered by any of the following problems? 1. Little interest or pleasure in doing things: not at all 2. Feeling down, depressed, or hopeless: not at all 3. Trouble falling or staying asleep, or sleeping too much: not at all 4. Feeling tired or having little energy: several days 5. Poor appetite or overeating: not at all 6. Feeling bad about yourself - or that you are a failure or have let yourself or your family down: not at all 7. Trouble concentrating on things, such as reading the newspaper or watching television: not at all 8. Moving or speaking so slowly that other people could have noticed. Or the opposite - being so fidgety or restless that you have been moving around a lot more than usual: not at all 9. Thoughts that you would be better off or of hurting yourself in some way: not at all Total score: 1 Depression Screening Interpretation: Positive (Better on buspirone 5 mg 1 tablet twice a day ) Depression Screening Follow-up: Existing condition and In treatment Depression Screening Done: Yes 49028 - PHQ-9 Billing: Yes Source: Developed by Drs. Tonny Grimm, Ksenia Delong, Roly Walker and colleagues, with an educational anayeli from [employer]. Thrive Questionnaire Date Thrive assessed: 01/11/24 I am a: Patient What is your living situation today?: I have a steady place to live Within the past 12 months, did the food you bought not last and you didn't have the money to get more?: Never true Within the past 12 months, did you worry whether your food would run out before you got money to buy more?: Never true Do you have trouble paying for medicines?: No Do you have trouble getting transportation to medical appointments?: No Do you have trouble paying your heating and electricity bill?: No Do you have trouble taking care of your child, family member or friend?: No Do you have trouble with day-to-day activities such as bathing, preparing meals, shopping, managing finances, etc.?: No Are you currently unemployed and looking for a job?: No Are you interested in more education?: No Please select the resources that you would like help with: None Currently or been in a relationship where the following occur: No concerns reported THRIVE Score: 0 DIMAS-7 AMB Questionnaire DIMAS-7 Date DIMAS - 7 assessed: 02/16/24 Feeling nervous, anxious, or on edge: 0 = Not at all Not being able to stop or control worryin = Not at all Worrying too much about different things: 0 = Not at all Trouble relaxin = Not at all Being so restless that it is hard to sit still: 0 = Not at all Becoming easily annoyed or irritable: 0 = Not at all Feeling afraid as if something awful might happen: 0 = Not at all Total DIMAS-7 score (0-4 normal; 5-9 mild; 10-14 moderate; 15-21 severe): 0 Source: Developed by Drs. Tonny Grimm, Ksenia Delong, Roly Walker and colleagues, with an educational anayeli from [employer]. DIMAS-7 Assessment Billing DIMAS-7 Assessment Tool: DIMAS-7 Assessment 55903 Review of Systems Const Denies chills, Denies fatigue and Denies fever(s) ENT Denies dizziness Card Denies chest pain, Denies lightheadedness, Denies palpitations and Denies dyspnea Resp Denies cough and Denies dyspnea GI Reports no additional complaints Musc Denies abnormal gait, Denies muscle weakness and Denies numbness Neuro Denies abnormal gait, Denies dizziness and Denies numbness Psych Reports as per HPI Endo Denies fatigue and Denies palpitations Physical exam (Primary Care) Tobacco/Smoking Status: Tobacco use Status Tobacco use date assessed 02/16/24 02/16/24 10:42 Patient Tobacco Use Status Never used Tobacco 02/16/24 10:42 e-Cigarette/Vaping Use Never Used 02/16/24 10:42 Depression Screening Interpretation: Positive (Better on buspirone 5 mg 1 tablet twice a day ) Depression Screening Follow-up: Existing condition and In treatment Thrive Assessment: Date of Thrive Assessment Date Thrive assessed 01/11/24 02/16/24 10:42 Currently or been in a relationship where the following occur: No concerns reported Telehealth Telehealth Telehealth Platform: [facility] Location of provider rendering services: practice address Location of patient: address on file Patient Identification confirmed using: Name, : Yes Telehealth method: video Patient verbally consented to treatment: Yes Patient verbally consented to billing insurance company: Yes Patient informed of any privacy concerns related to visit: Yes Minutes spent on Phone/Video with Pt.: 15 Coding Level of Care Code Tele Est Pt Level 3 (54219) Diagnoses Depression with anxiety F41.8 Additional Codes DIMAS-7 Assessment Billing - DIMAS-7 Assessment Tool: DIMAS-7 Assessment 32456 ([id number]) PHQ-9 - 67583 - PHQ-9 Billing: Yes ([id number]) Assessment & Plan Assessment & Plan (1) Depression with anxiety: Code(s): F41.8 - Other specified anxiety disorders Category: Medical Plan: Currently doing well on buspirone 5 mg 1 tablet twice a day. Will continue with same dose. Refill sent on her prescription and will see her back for follow-up 07/23/2024 Medications: Refilled buspirone 5 mg PO BID 60 tabs 5RF F41.8 - Other specified anxiety disorders buspirone 5 mg PO BID 60 tabs 5RF F41.8 - Other specified anxiety disorders
== END 2024-02-16 11:17 | disposition home or self-care (01) ==
LOC: HO.HMCC 10:43
PROVIDERS: PCP Internal Medicine; Visit Provider Internal Medicine
DX: F41.8 Other specified anxiety disorders (principal)

== ENCOUNTER → 2024-02-16 10:43 | Outpatient (BNVA) | payer OTHER, SELFPAY | PROVIDERS: PCP Internal Medicine; Visit Provider Internal Medicine | DX: F41.8 Other specified anxiety disorders (principal) | CPT/HCPCS: 96127 ==

== ENCOUNTER 2024-03-14 08:47 | Outpatient (AMB) | payer OTHER, SELFPAY ==
--- NOTE | 2024-03-14 08:50 | A.OFFVIS_ITS ---
Vital Signs 03/14/24 09:03 Height 5 ft 3 in Weight 140 lb BMI 24.8 BP 99/55 L Blood Pressure Location Lt brachial Position Sitting Pulse 71 Intake Visit Reasons: 6 month follow up Intake Note: Patient follow up for Cirrhosis of liver without ascites and liver US Elastography. Patient denies any GI issues for today visit. 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 Pt is status post Fontan's procedure after . Patient has likely developed cirrhosis as a complication of Fontan's procedure as a result of chronic low-cardiac output state combined with increased mesenteric resistance and chronic venous congestion. CHRONIC ILLNESSES:?ATRIAL FIBRILLATION/ FLUTTER S/P CARDIOVERSION 05/21/12 DONE IN [place] AND MAINTAINED ON SOTALOL - CURRENTLY FOLLOWED BY DR. 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 ? INTA- ATRIAL TACHYCARDIA - FOLLOWED VY DR. GARCIA, HX OF DEPRESSION, HYPERTRIGLYCERIDEMIA NEUROCONGENITIVE DISORDER WITH PTSD AND SOCIAL ANXIETY - sees Lore Akins at ? [facility] ASPLENIA, NEEDS SBE PROPHYLAXIS FOR ANY PROCEDURES, HISTORY OF STAPHLOCOCCUS AUREUS ENDOCARDITIS IN 2000, Hx of Depression- felt to be a side- effect of sotalol. TODAY'S VISIT: Has been feeling fine and denies any GI symptoms. Denies abdominal pain or lower extremity edema. Denies any change in symptoms of fatigue. Has cut down on sugars and sweets with gradual wt loss Following up with [facility] cardiology once a year alternating with Dr Puga, [facility]. PAST VISIT: ? ? ? Continues to have fatigue - ? related to blood pressure medications. ?? ? Had an appt with her group home supervisor at [facility] - he said everything looks fine ?? ? She was seen at [facility] and scheduled for a Capsule Endoscopy in / November or December. Procedure was cancelled since pt is unable to swallow pills - usually chews them. ? Denies past history of Jaundice or known FH of liver disease. ? Had open heart surgery when she was a week old - flown from [facility] to [facility] in [place] when she was a week old. Had mutiple heart surgeries - last surgery at age 5 yrs. ? Denies abdominal pain. ? Complains of fatgue on walking. ? Patient denies change in bowel habits, black stools or rectal bleeding. ? Has a BM once a day. ? Denies dysphagia, heartburn, nausea or vomiting, change in appetite or weight. ? Maternal GM had Bone cancer. ? Denies known FH of colon polyps or cancer. [facility] NORMAL CBC, PLAT 184, NORMAL HAPTOGLOBIN, INR 1.0, NORMAL IRON STUDIES WITH FERRITIN OF 69. ? TOTAL BILIRUBIN 2.3, DIRECT BILIRUBIN 0.7, AST 27, ALT 42, ALKALINE PHOSPHATASE 45 ? CERULOPLASMIN NORMAL AT 31, ? HEPATITIS SEROLOGIES SHOWED IMMUNITY TO HEPATITIS A, AND LACK OF IMMUNITY TO HEPATITIS-B ? HEPATITIS-C ANTIBODY WAS NEGATIVE. ? LIVER FIBROSIS SCORE OF 0.66, LIVER FIBROSIS STAGE F3, NECROINFLAMMATORY SCORE OF 0.32 ALBUMIN 5.1 ? STOOL PANCREATIC ELASTASE GREATER THAN 500 ? RETICULOCYTE COUNT,CORRECTED 1.2 ? HEPATITIS B SURFACE ANTIBODY - NEGATIVE ? HEPATITIS C ANTIBODY - NEGATIVE ? CERULOPLASMIN - 31 - NORMAL ? HAPTOGLOBIN - 85 ? FLUOR. ANTINUCLEAR AB SCREEN (NELLY) - NEGATIVE ? HEPATITIS A ANTIBODY-IGG - POSITIVE ?IMAGING STUDIES: 09/29/23 ABD US WITH ELASTOGRAPHY SHOWED: 1. Hepatic cirrhosis. 2. Liver elastography: Liver Stiffness 1.7-2.1 m/s: Suggestive of compensated advanced chronic liver disease but need further test for confirmation. IQR/Median value over 0.15 implies a poor quality data set. 02/2023 ABD US SHOWED: 1. Periportal hyperechogenicity, a nonspecific finding, though differential etiologies could include normal variant, IBD, schistosomiasis or other etiology. No discrete liver lesion. 2. Multiple punctate echogenic foci without definite shadowing or twinkle artifact in the left kidney may reflect vascular reflectors versus tiny stones. 3. Situs inversus. 12/27/21 ABD US SHOWED: LIVER: The liver is normal in size. The liver contour is normal. Parenchymal echogenicity is normal. No focal hepatic lesion. There is no intrahepatic biliary duct dilatation seen. GALLBLADDER: Normal. The gallbladder is physiologically distended without evidence of stones, sludge, polyps, wall thickening or pericholecystic fluid. FREE FLUID: None. IMPRESSION: ?Findings of situs inversus. No liver lesion. 06/05/19 ABDOMINAL ULTRASOUND WITH ELASTOGRAPHY SHOWED:? 1. Hepatic steatosis with mild heterogenous-appearing liver but no ?focal lesion seen. Rest of the abdominal ultrasound is unremarkable. ?[id number]-[id number] fibrosis, stage F3-F4. 2. Elastography: Moderate to severe. FEB, 2019 ABD US SHOWED: ? Situs inversus. ? There is hepatomegaly with hypertrophy of the left lobe of liver. The liver has a nodular contour with a diffusely heterogeneous echotexture. ? The appearance is nonspecific but this constellation of findings can be seen in the setting of cirrhosis. No biliary ductal dilatation seen. ? The pancreas is diffusely prominent with heterogeneous echotexture. This is nonspecific but can be seen in the setting of chronic pancreatitis. ?PAST GI HISTORY BY REVIEW OF MEDICAL RECORDS: ? Last seen on 05/15/19: ? Assessments ? 1. Elevated LFTs - R94.5 (Primary) ? 2. Abnormal US (ultrasound) of abdomen - R93.5 ? 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 Hepatitis serologies were negative, Ceruloplasmin, ROSA M, iron studies were normal. Liver Fibrosis Score of 0.66 and Liver Fibrosis Stage F3. ? Elevated bilirubin can be due to hemolysis - Haptoglobin was normal ? I will obtain abd US with elastography to confirm presence of cirrhosis seen on Liver Fibrosis test. ? Treatment ? 1. Elevated LFTs ? LAB: LDH ? IMAGING: US ABDOMEN COMP WITH ELASTOGRAPHY ? 2. Abnormal US (ultrasound) of abdomen ? LAB: PANCREATIC ELASTASE-1, STOOL ? LAB: LIPASE ? Follow Up ? 2 Weeks after US (Reason: FU on elevated LFTs) ? Treatment ? 1. ? Notes: ? 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 Father Diabetes Social History Household Members: Family Housing: House Alcohol intake: never Patient Tobacco Use Status: Never used Tobacco e-Cigarette/Vaping Use: Never Used Second Hand Smoke Exposure: No service: No Current occupational status: disabled Current occupational exposures/hazards: No Cognitive needs: No Hearing needs: No Vision needs: Yes Review of Systems Const All systems reviewed & are unremarkable except as noted in HPI and below Physical Exam Vital Signs: Last Vital Signs Pulse 71 03/14/24 09:03 BP 99/55 L 03/14/24 09:03 BMI result Body Mass Index 24.8 Const General: no acute distress Nutritional Appearance: average body habitus Orientation/consciousness: patient oriented x3 Limitations: no limitations HEENT Head: Yes normal to inspection Ears: hearing grossly normal bilaterally Eyes Sclerae: sclerae normal Pupils: Equal, round and reactive pupils present Neck Neck: Yes normal visual inspection Chest Chest palpation & inspection: normal inspection of the chest Resp Effort & Inspection: normal respiratory effort Auscultation: clear to auscultation bilaterally Cardio Palpation: normal PMI Rate: regular rate Rhythm: regular rhythm Heart sounds: S1 normal heart sound present, S2 normal heart sound present and no murmurs GI Palpation (GI): Soft to palpation, nontender and No hepatosplenomegaly present Auscultation: normal bowel sounds Rectal Exam - Female: deferred Skin General skin exam: no rashes or lesions noted Neuro General: patient oriented x3, gait normal and moves all extremities Cranial nerves: Yes Equal, round and reactive pupils present Psych Appearance: grossly normal Mental Status: mental status grossly normal Assessment & Plan Assessment & Plan (1) Cirrhosis of liver without ascites: Code(s): K74.60 - Unspecified cirrhosis of liver Category: Medical Qualifiers: Hepatic cirrhosis type: unspecified hepatic cirrhosis Qualified Code(s): K74.60 - Unspecified cirrhosis of liver Plan 28 YF with 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 Pt was referred to GI for elevated LFTs - elevation of total bilirubin - predominently indirect, and intermittent mild elevation of ALT. Hepatitis serologies were negative, Ceruloplasmin, ROSA M, iron studies were normal. Liver Fibrosis Score of 0.66 and Liver Fibrosis Stage F3. Haptoglobin was normal Abd US with elastography confirmed presence of cirrhosis seen on Liver Fibrosis test. MELD Na SCORE HAS BEEN STABLE AT 13. Hepatitis serologies showed immunity to hepatitis A and non immune to hep B (unclear if she received hepatitis-B vaccination as an ). Hep B vaccine given by GI RN today (1st Dose) in 01/2022 Hep B #2 vaccine given on 02/11/22. Hep B vaccine # 3 given by GI RN today (3rd dose) on 07/28/22 Patient has likely developed cirrhosis as a complication of Fontan's procedure as a result of chronic low-cardiac output state combined with increased mesenteric resistance and chronic venous congestion. Patient will be scheduled for an upper endoscopy to screen for varices if platelet count decreases to <100, 000. Records from Cardiology clinic (Last clinic vist in July 2021) were reviewed. Pt seen [place] [facility] ([place]uga) at pt's GM's request so pt can be seen by Cardiology every 6 months instead of annually. She will continue to see Dr Garcia at [facility] on an annual basis. 03/14/24 Schedule Abd US FU in 6 months - scheduled 09/05/2024 Orders: Orders Prothrombin Time INR 03/14/24 K74.60 - Unspecified cirrhosis of liver Liver Fibrosis Pnl 03/14/24 K74.60 - Unspecified cirrhosis of liver Liver Panel 03/14/24 K74.60 - Unspecified cirrhosis of liver Complete Blood Count no Diff 03/14/24 K74.60 - Unspecified cirrhosis of liver US abdomen limited 03/14/24 K74.60 - Unspecified cirrhosis of liver Coding Level of Care Code Est Pt Level 3 (64529) Diagnoses Cirrhosis of liver without ascites, unspecified hepatic cirrhosis type K74.60 Hepatic cirrhosis type: unspecified hepatic cirrhosis Time Spent (min) 17
[2024-03-14 09:03] VITALS: BP 99/55; PULSE 71; BMI 24.8
== END 2024-03-14 09:44 | disposition home or self-care (01) ==
PROVIDERS: PCP Internal Medicine; Visit Provider Internal Medicine Gastroenterology
DX: K74.60 Unspecified cirrhosis of liver (principal)
CPT/HCPCS: 99213

== ENCOUNTER → 2024-03-14 08:47 | Outpatient (BNVA) | payer OTHER, SELFPAY | PROVIDERS: PCP Internal Medicine; Visit Provider Internal Medicine Gastroenterology | DX: K74.60 Unspecified cirrhosis of liver (principal) | CPT/HCPCS: 99212 ==

== ENCOUNTER 2024-03-21 08:23 | Outpatient (REF) | payer OTHER, SELFPAY ==
--- NOTE | ~2024-03-21 | US_ITS ---
EXAMINATION: US ABDOMEN LIMITED CLINICAL INFORMATION: Unspecified cirrhosis of liver. Screen for HCC and ascites. COMPARISON: Ultrasound abdomen limited with elastography 09/29/2023. Limited abdominal ultrasound 02/22/2023. TECHNIQUE: Real-time imaging of the right upper quadrant abdominal viscera. FINDINGS: PANCREAS: The pancreas is enlarged and heterogeneous echotexture. LIVER: The liver is diffusely heterogeneous with lobulated contour and cirrhotic appearance. No focal lesion or intrahepatic ductal dilatation seen. There is hepatopedal flow's and middle portal vein on Doppler exam. GALLBLADDER: The gallbladder is physiologically distended without evidence of stones, sludge, polyps, wall thickening or pericholecystic fluid. COMMON BILE DUCT: Normal in caliber measuring 0.18 cm in diameter. RIGHT KIDNEY: No hydronephrosis. No renal calculi or focal parenchymal lesions. The kidney measures 10.4 cm in maximum dimension. FREE FLUID: None. US/US abdomen limited IMPRESSION: Diffuse heterogeneous and echogenic liver suggestive of cirrhosis. No focal lesion seen. Gallbladder, CBD and right kidney is unremarkable Electronically signed by: Stone Smart MD 03/21/2024 10:59 PM EST
[2024-03-21 13:44] LABS: Hematocrit 46.8 % (37.0-47.0); Hemoglobin 15.5 g/dl (12.0-16.0); Mean Corpuscular HGB Conc 33.1 g/dl (31.0-35.0); Mean Corpuscular Hemoglobin 29.1 pg (27.0-33.0); Mean Corpuscular Volume 87.8 fL (80.0-98.0); Mean Platelet Volume 10.2 fL (9.4-12.3); Platelet Count 187 X10*3/uL (160-400); Red Blood Count 5.33 X10*6/uL (4.20-5.50); Red Cell Distribution Width 13.2 % (11.0-16.0); White Blood Count 5.8 X10*3/uL (4.8-10.8)
[2024-03-21 14:00] LABS: Alanine Aminotransferase 40 U/L (0-31); Albumin Level 4.9 g/dL (3.5-5.0); Alkaline Phosphatase 39 U/L (39-117); Aspartate Amino Transferase 31 U/L (5-31); Bilirubin Direct 0.8 mg/dL (0.0-0.5); Bilirubin Total 3.1 mg/dL (0.0-1.0); Total Protein 7.8 g/dL (6.5-8.0)
[2024-03-21 14:02] LABS: Prothrombin Time 11.8 SEC (10.9-12.4)
[2024-03-30 23:28] LABS: FIB-ALT 29 U/L (6-29); FIB-Alpha-2-Macroglobulin 346 mg/dL (106-279); FIB-Apolipoprotein A1 134 mg/dL (101-198); FIB-GGT 117 U/L (3-40); FIB-Haptoglobin 82 mg/dL (43-212); FIB-Total Bilirubin 2.8 mg/dL (0.2-1.2); Liver Fibrosis Score 0.78; Liver Fibrosis Stage F4; Nec Inflam Act Grade A0-A1; Nec Inflam Act Score 0.25; Reference ID 5266456
== END 2024-03-21 08:24 | disposition home or self-care (01) ==
LOC: HO.HMGCX 08:23
PROVIDERS: PCP Internal Medicine; Visit Provider Internal Medicine Gastroenterology
DX: K74.60 Unspecified cirrhosis of liver (principal)
CPT/HCPCS: 36415; 76705; 80076; 81596; 85027; 85610

== ENCOUNTER 2024-07-11 08:47 | Outpatient (REF) | payer OTHER, SELFPAY ==
[2024-07-11 10:46] LABS: Alanine Aminotransferase 33 U/L (0-31); Albumin Level 4.9 g/dL (3.5-5.0); Alkaline Phosphatase 37 U/L (39-117); Anion Gap 13 (12-20); Aspartate Amino Transferase 28 U/L (5-31); Bilirubin Total 3.7 mg/dL (0.0-1.0); Blood Urea Nitrogen 15 mg/dL (9-16); Calcium 9.6 mg/dL (8.4-10.2); Carbon Dioxide 19 mmol/L (22-29); Chloride 111 mmol/L (96-108); Cholesterol 157 mg/dL (<200); Estimated Glomerular Filt Rate > 60; Glucose Fasting 86 mg/dL (60-99); HDL Cholesterol 41 mg/dL (>40); LDL Cholesterol Calculated 82 mg/dL (<100); Sodium 139 mmol/L (135-145); Total Protein 7.6 g/dL (6.5-8.0); Triglycerides 173 mg/dL (<150)
[2024-07-11 10:49] LABS: Vitamin D 25-OH Total 100.9 ng/mL (>30)
== END 2024-07-11 08:48 | disposition home or self-care (01) ==
LOC: HO.HMGCLDS 08:47
PROVIDERS: PCP Internal Medicine; Visit Provider Internal Medicine
DX: K74.60 Unspecified cirrhosis of liver (principal); E78.1 Pure hyperglyceridemia; Z87.74 Personal history of (corrected) congenital malformations of heart and circulatory system
CPT/HCPCS: 36415; 80053; 80061; 82306

== ENCOUNTER 2024-07-23 08:35 | Outpatient (AMB) | payer OTHER, SELFPAY ==
[2024-07-23 09:20] VITALS: BP 96/70; PULSE 74; RESP 16; TEMP 36.4; O2SAT 92; BMI 25.7
--- NOTE | 2024-07-23 09:20 | MHC.PC.OV ---
Vital Signs 07/23/24 09:20 Height 5 ft 3 in Weight 145 lb BMI 25.7 BP 96/70 Blood Pressure Location Lt brachial Position Sitting Respiration 16 Pulse 74 Pulse Source Pulse Oximeter Temp 97.6 F Temp Source Oral Pulse Oximetry (%) 92 Oxygen Delivery Method Room Air Intake Visit Reasons: Annual PE Is last menstrual period known: Yes Last menstrual period: 07/16/24 Allergies No Known Allergies Allergy (Verified 07/23/24 09:37) Medication List - Last Reconciled 07/23/24 by Sandra Stanley MD aspirin (Adult Low Dose Aspirin) 81 mg PO DAILY buspirone 5 mg PO BID digoxin 125 mcg PO Q OTHER DAY lisinopril 2.5 mg PO DAILY sotalol 80 mg PO BID Tobacco use date assessed: 07/23/24 Dental Screening Dental Screen Date: 07/23/24 Did you have a dental visit in the last 12 months?: Yes Did you have a dental problem in the last 6 months where you did not have access to dental care?: No Was dental information given to patient?: Patient has dentist HPI Annual PE HPI Details - The patient is a 29-year-old female presenting for her physical exam. - has history of congestive heart disease, currently followed by Cardiology, she continues with her regular cardiac medications with good blood pressure control, denies any episodes of chest pain, shortness of breath, lightheadedness. -- Anxiety is managed with buspirone. -currently being followed by GI clinic for cirrhosis of liver without ascites, sees Dr. Costa. Likely developed cirrhosis as a complication of Fontan's procedure as a result of chronic low-cardiac output state combined with increased mesenteric resistance and chronic venous congestion. She will be scheduled for an upper endoscopy to screen for varices if platelet count decreases to <100, 000.. - Immunization records are up-to-date, including flu, pneumonia, and hepatitis B vaccinations. - She is maintaining contact with her manager performance for ongoing management at [facility] and is on the waiting list for a Pap smear at [facility] [place]. 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 Father Diabetes Social History Household Members: Family Housing: House Alcohol intake: never Patient Tobacco Use Status: Never used Tobacco e-Cigarette/Vaping Use: Never Used Second Hand Smoke Exposure: No service: No Current occupational status: disabled Current occupational exposures/hazards: No Cognitive needs: No Hearing needs: No Vision needs: Yes Female Reproductive History Menstrual Date of last menstrual period: 07/16/24 Questionnaire PHQ-9 Over the last 2 weeks, how often have you been bothered by any of the following problems? 1. Little interest or pleasure in doing things: not at all 2. Feeling down, depressed, or hopeless: not at all 3. Trouble falling or staying asleep, or sleeping too much: several days 4. Feeling tired or having little energy: not at all 5. Poor appetite or overeating: not at all 6. Feeling bad about yourself - or that you are a failure or have let yourself or your family down: not at all 7. Trouble concentrating on things, such as reading the newspaper or watching television: not at all 8. Moving or speaking so slowly that other people could have noticed. Or the opposite - being so fidgety or restless that you have been moving around a lot more than usual: not at all 9. Thoughts that you would be better off or of hurting yourself in some way: not at all Total score: 1 Depression Screening Interpretation: Negative Depression Screening Done: Yes 47130 - PHQ-9 Billing: Yes Source: Developed by Drs. Tonny Grimm, Ksenia Delong, Roly Walker and colleagues, with an educational anayeli from [employer]. Thrive Questionnaire Date Thrive assessed: 04/15/25 I am a: Patient What is your living situation today?: I have a steady place to live Within the past 12 months, did the food you bought not last and you didn't have the money to get more?: Never true Within the past 12 months, did you worry whether your food would run out before you got money to buy more?: Never true Do you have trouble paying for medicines?: No Do you have trouble getting transportation to medical appointments?: No Do you have trouble paying your heating and electricity bill?: No Do you have trouble taking care of your child, family member or friend?: No Do you have trouble with day-to-day activities such as bathing, preparing meals, shopping, managing finances, etc.?: No Are you currently unemployed and looking for a job?: No Are you interested in more education?: No Please select the resources that you would like help with: None Currently or been in a relationship where the following occur: I choose not to answer THRIVE Score: 0 AUDIT C Alcohol Use Questionnaire (AUDIT-C) 1. How often do you have a drink containing alcohol?: Never Total Score: 0 DIMAS-7 AMB Questionnaire DIMAS-7 Date DIMAS - 7 assessed: 07/23/24 Feeling nervous, anxious, or on edge: 1 = Several days Not being able to stop or control worryin = Several days Worrying too much about different things: 1 = Several days Trouble relaxin = Not at all Being so restless that it is hard to sit still: 0 = Not at all Becoming easily annoyed or irritable: 0 = Not at all Feeling afraid as if something awful might happen: 0 = Not at all Total DIMAS-7 score (0-4 normal; 5-9 mild; 10-14 moderate; 15-21 severe): 3 Source: Developed by Drs. Tonny Grimm, Ksenia Delong, Roly Walker and colleagues, with an educational anayeli from [employer]. DIMAS-7 Assessment Billing DIMAS-7 Assessment Tool: DIMAS-7 Assessment 31832 Physical exam (Primary Care) Vital Signs: Last Vital Signs Temp 97.6 F 07/23/24 09:20 Pulse 74 07/23/24 09:20 Resp 16 07/23/24 09:20 BP 96/70 07/23/24 09:20 Pulse Ox 92 07/23/24 09:20 Oxygen Delivery Method Room Air 07/23/24 09:20 BMI result Body Mass Index 25.7 Tobacco/Smoking Status: Tobacco use Status Tobacco use date assessed 07/23/24 07/23/24 09:24 Patient Tobacco Use Status Never used Tobacco 07/23/24 09:24 e-Cigarette/Vaping Use Never Used 07/23/24 09:24 PHQ-9: PHQ-9 Score PHQ-9: Total score 1 07/23/24 09:24 Depression Screening Interpretation: Negative Thrive Assessment: Date of Thrive Assessment Date Thrive assessed 07/16/24 07/23/24 09:24 Currently or been in a relationship where the following occur: I choose not to answer Const General: comfortable, no acute distress and alert Orientation/consciousness: patient oriented x3 HENMT Head: Yes normocephalic Ears: external ears normal, TM's normal bilaterally and EAC's normal General nose exam: Normal external nose present Face and sinus: Yes face symmetric Mouth: Normal oral and palatal mucosa present and moist mucous membranes Eyes General: appearance normal, both eyes and all related structures Neck Neck: Yes full ROM, Yes no lymphadenopathy and Yes supple Carotids: no bruits Chest Breast/axilla palpation: normal palpation of the breasts Resp Effort & Inspection: normal respiratory effort and able to speak in complete sentences Auscultation: clear to auscultation bilaterally Cardio Rate: regular rate Rhythm: regular rhythm Heart sounds: S1 normal heart sound present and S2 normal heart sound present GI Palpation (GI): Soft to palpation, nontender, no guarding and no masses Auscultation: normal bowel sounds General: Yes no CVA tenderness and Yes deferred (On waiting list at [facility] for her routine Pap and pelvic exa) Back/Spine/Pelvis Back: no CVA tenderness and No back tenderness Skin General skin exam: no rashes or lesions noted Neuro General: patient oriented x3, gait normal, tone normal, moves all extremities and no focal motor deficits Cranial nerves: Yes CN's II-XII intact bilaterally Gait exam (Neuro): Normal gait present Extrem General: Yes no joint enlargement, Yes no clubbing, cyanosis or edema and Yes no calf tenderness Psych Appearance: grossly normal and well kempt Mental Status: mental status grossly normal Speech and movement: Slowed movement present (Neuro) Affect: Blunted affect present Thought process: Normal thought process present Results Reviewed Results Reviewed: Name: Tawny Pendleton Age/Sex: 29/F : 1995 Unit#: [id number] Attend Dr: Sandra Stanley MD Re07/11/24 Status: DEP [facility] Disch: SPEC : [id number] AMENA: 07/11/24 STATUS: COMP REQ : [id number] RECD: 07/11/[address]: Sandra Stanley MD COMP: 07/11/24 ENTERED: 07/11/[address]: ORDERED: CMP Fast, Lipid Panel, Vitamin D 25-OH Test Result Flag Reference Sodium 139 135-145 mmol/L Potassium 4.0 3.3-5.1 mmol/L CL 111 H 96-108 mmol/L CO2 19 L 22-29 mmol/L Gap 13 12-20 BUN 15 9-16 mg/dL Creat 0.75 0.5-1.4 mg/dL eGFR > 60 Chronic Kidney Disease: Estimated GFR < 60 mL/min/1.73m2 Severe Kidney Disease: Estimated GFR < 15 mL/min/1.73m2 FBS 86 60-99 mg/dL CA 9.6 8.4-10.2 mg/dL Total Bili 3.7 H 0.0-1.0 mg/dL Slight Icterus. AST (GOT) 28 5-31 U/L ALT (GPT) 33 H 0-31 U/L Protein, Total 7.6 6.5-8.0 g/dL Alb 4.9 3.5-5.0 g/dL Triglyceride 173 H <150 mg/dL Desirable Triglyceride: less than 150 mg/dL Borderline High Triglyceride 150-199 mg/dL High Triglyceride: 200-499 mg/dL Very High Triglyceride: greater than or equal to 5OO mg/dL Cholesterol 157 <200 mg/dL Desirable Cholesterol: less than 200 mg/dL Borderline High Cholesterol: 200-239 mg/dL High Cholesterol: greater than 239 mg/dL LDL Calculated 82 <100 mg/dL Desirable LDL: less than 100 mg/dL Near Optimal/Above Optimal LDL: 110-129 mg/dL Borderline High LDL: 130-159 mg/dL High LDL: 160-189 mg/dL Very High LDL: greater than or equal to 190 mg/dL HDL 41 >40 mg/dL Desirable HDL: greater than 40 mg/dL Note: This HDL assay may give artificially low results in patients with liver disease. Alk Phos 37 L 39-117 U/L Vitamin D 25-OH 100.9 >30 ng/mL Health Based Reference Values* < 20 ng/mL Deficient 20-30 ng/mL Insufficient > 30 ng/mL Sufficient 5 Coding Level of Care Code Est Pt Prev Care 18-39y(46205) Diagnoses Annual visit for general adult medical examination with abnormal findings Z00.01 Depression with anxiety F41.8 Hypertriglyceridemia E78.1 Cirrhosis of liver without ascites, unspecified hepatic cirrhosis type K74.60 Hepatic cirrhosis type: unspecified hepatic cirrhosis Additional Codes PHQ-9 - 73071 - PHQ-9 Billing: Yes ([id number]) DIMAS-7 Assessment Billing - DIMAS-7 Assessment Tool: DIMAS-7 Assessment 51559 ([id number]) Assessment & Plan Assessment & Plan (1) Annual visit for general adult medical examination with abnormal findings: Code(s): Z00.01 - Encounter for general adult medical examination with abnormal findings Plan: Recent fasting lab results reviewed with patient. Continue with dental visit every 6 months and regular eye exams, at least every 2 years. Continue with taking vitamin-D 2 and get doing at least reviewed intensity exercise 2 to 3 times a week Instructed to do self-breast exam, and recommended to get yearly mammogram, starting at age 40. Goes to [facility] for her routine Pap and pelvic exam, due this year, currently on the wait list per patient she is up-to-date with all her vaccinations. (2) Depression with anxiety: Code(s): F41.8 - Other specified anxiety disorders Category: Medical Plan: Stable and controlled on buspirone 5 mg taken 1 tablet twice a day, refill sent (3) Hypertriglyceridemia: Code(s): E78.1 - Pure hyperglyceridemia Category: Medical Plan: Stressed importance of adherence to healthy eating habits, avoidance of processed foods, triglyceride levels has decreased as compared to last check. Stressed importance as well of staying active getting regular exercise at least 30 minutes of moderate intensity exercise 3 to 4 times a week (4) Cirrhosis of liver without ascites: Code(s): K74.60 - Unspecified cirrhosis of liver Category: Medical Qualifiers: Hepatic cirrhosis type: unspecified hepatic cirrhosis Qualified Code(s): K74.60 - Unspecified cirrhosis of liver Plan: Followed by Dr. Costa Medications: Refilled buspirone 5 mg PO BID 60 tabs 5RF F41.8 - Other specified anxiety disorders
== END 2024-07-23 09:52 | disposition home or self-care (01) ==
LOC: HO.HMCC 08:36
PROVIDERS: PCP Internal Medicine; Visit Provider Internal Medicine
DX: Z00.01 Encounter for general adult medical examination with abnormal findings (principal); F41.8 Other specified anxiety disorders; E78.1 Pure hyperglyceridemia; K74.60 Unspecified cirrhosis of liver

== ENCOUNTER → 2024-07-23 08:35 | Outpatient (BNVA) | payer OTHER, SELFPAY | PROVIDERS: PCP Internal Medicine; Visit Provider Internal Medicine | DX: Z00.01 Encounter for general adult medical examination with abnormal findings (principal); F41.8 Other specified anxiety disorders; E78.1 Pure hyperglyceridemia; K74.60 Unspecified cirrhosis of liver; Z79.899 Other long term (current) drug therapy | CPT/HCPCS: 96127; 99395 ==

== ENCOUNTER 2024-09-05 08:10 | Outpatient (AMB) | payer OTHER, SELFPAY ==
[2024-09-05 08:20] VITALS: BP 106/56; PULSE 76; O2SAT 92; BMI 26.0
--- NOTE | 2024-09-05 08:20 | MHC.OFFVIS ---
Vital Signs 09/05/24 08:20 Height 5 ft 3 in Weight 147 lb BMI 26.0 BP 106/56 L Blood Pressure Location Lt brachial Position Sitting Pulse 76 Pulse Source Pulse Oximeter Pulse Oximetry (%) 92 Oxygen Delivery Method Room Air Intake Visit Reasons[facility] Int[facility] Note: Patient 6 month follow up for Cirrhosis of liver without ascites, lab and US results. Patient cc: Pt denies any new GI sx or concerns and comments that she has remained stable. 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: Details: FOLLOW-UP GI CLINIC VISIT FOR THIS 29-YEAR-OLD FEMALE FOR FOLLOW-UP OF CIRRHOSIS AND ELEVATED LFTS. Pt is status post Fontan's procedure after . Patient has likely developed cirrhosis as a complication of Fontan's procedure as a result of chronic low-cardiac output state combined with increased mesenteric resistance and chronic venous congestion. CHRONIC ILLNESSES:?ATRIAL FIBRILLATION/ FLUTTER S/P CARDIOVERSION 05/21/12 DONE IN [place] AND MAINTAINED ON SOTALOL - CURRENTLY FOLLOWED BY DR. 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 ? INTA- ATRIAL TACHYCARDIA - FOLLOWED VY DR. GARCIA, HX OF DEPRESSION, HYPERTRIGLYCERIDEMIA NEUROCONGENITIVE DISORDER WITH PTSD AND SOCIAL ANXIETY - sees Lore Akins at ? [facility] ASPLENIA, NEEDS SBE PROPHYLAXIS FOR ANY PROCEDURES, HISTORY OF STAPHLOCOCCUS AUREUS ENDOCARDITIS IN 2000, Hx of Depression- felt to be a side-effect of sotalol. TODAY'S VISIT: Patient 6 month follow up for Cirrhosis of liver without ascites, lab and US results. Patient cc: Pt denies any new GI sx or concerns and comments that she has remained stable. Has been feeling fine and denies any GI symptoms. Denies abdominal pain or lower extremity edema. Denies any change in symptoms of fatigue. Has cut down on sugars and sweets with gradual wt loss Following up with [facility] once a year alternating with Dr Puga, [facility]. Seen by Dr Garcia last year and waiting to schedule an appt this year PAST VISIT: ? ? ? Continues to have fatigue - ? related to blood pressure medications. ?? ? Had an appt with her continuity person at [facility] - he said everything looks fine ?? ? She was seen at [facility] and scheduled for a Capsule Endoscopy in / November or December. Procedure was cancelled since pt is unable to swallow pills - usually chews them. ? Denies past history of Jaundice or known FH of liver disease. ? Had open heart surgery when she was a week old - flown from [facility] to [facility] in [place] when she was a week old. Had mutiple heart surgeries - last surgery at age 5 yrs. ? Denies abdominal pain. ? Complains of fatgue on walking. ? Patient denies change in bowel habits, black stools or rectal bleeding. ? Has a BM once a day. ? Denies dysphagia, heartburn, nausea or vomiting, change in appetite or weight. ? Maternal GM had Bone cancer. ? Denies known FH of colon polyps or cancer. ??LABS IN [facility]:?04/04/19 NORMAL CBC, PLAT 184, NORMAL HAPTOGLOBIN, INR 1.0, NORMAL IRON STUDIES WITH FERRITIN OF 69. ? TOTAL BILIRUBIN 2.3, DIRECT BILIRUBIN 0.7, AST 27, ALT 42, ALKALINE PHOSPHATASE 45 ? CERULOPLASMIN NORMAL AT 31, ? HEPATITIS SEROLOGIES SHOWED IMMUNITY TO HEPATITIS A, AND LACK OF IMMUNITY TO HEPATITIS-B ? HEPATITIS-C ANTIBODY WAS NEGATIVE. ? LIVER FIBROSIS SCORE OF 0.66, LIVER FIBROSIS STAGE F3, NECROINFLAMMATORY SCORE OF 0.32 ALBUMIN 5.1 ? STOOL PANCREATIC ELASTASE GREATER THAN 500 ? RETICULOCYTE COUNT,CORRECTED 1.2 ? HEPATITIS B SURFACE ANTIBODY - NEGATIVE ? HEPATITIS C ANTIBODY - NEGATIVE ? CERULOPLASMIN - 31 - NORMAL ? HAPTOGLOBIN - 85 ? FLUOR. ANTINUCLEAR AB SCREEN (NELLY) - NEGATIVE ? HEPATITIS A ANTIBODY-IGG - POSITIVE ?IMAGING STUDIES: 09/29/23 ABD US WITH ELASTOGRAPHY SHOWED: 1. Hepatic cirrhosis. 2. Liver elastography: Liver Stiffness 1.7-2.1 m/s: Suggestive of compensated advanced chronic liver disease but need further test for confirmation. IQR/Median value over 0.15 implies a poor quality data set. 02/2023 ABD US SHOWED: 1. Periportal hyperechogenicity, a nonspecific finding, though differential etiologies could include normal variant, IBD, schistosomiasis or other etiology. No discrete liver lesion. 2. Multiple punctate echogenic foci without definite shadowing or twinkle artifact in the left kidney may reflect vascular reflectors versus tiny stones. 3. Situs inversus. 12/27/21 ABD US SHOWED: LIVER: The liver is normal in size. The liver contour is normal. Parenchymal echogenicity is normal. No focal hepatic lesion. There is no intrahepatic biliary duct dilatation seen. GALLBLADDER: Normal. The gallbladder is physiologically distended without evidence of stones, sludge, polyps, wall thickening or pericholecystic fluid. FREE FLUID: None. IMPRESSION: ?Findings of situs inversus. No liver lesion. 06/05/19 ABDOMINAL ULTRASOUND WITH ELASTOGRAPHY SHOWED:? 1. Hepatic steatosis with mild heterogenous-appearing liver but no ?focal lesion seen. Rest of the abdominal ultrasound is unremarkable. ?Xomuicsp-iw-zfvrzz fibrosis, stage F3-F4. 2. Elastography: Moderate to severe. FEB, 2019 ABD US SHOWED: ? Situs inversus. ? There is hepatomegaly with hypertrophy of the left lobe of liver. The liver has a nodular contour with a diffusely heterogeneous echotexture. ? The appearance is nonspecific but this constellation of findings can be seen in the setting of cirrhosis. No biliary ductal dilatation seen. ? The pancreas is diffusely prominent with heterogeneous echotexture. This is nonspecific but can be seen in the setting of chronic pancreatitis. ?PAST GI HISTORY BY REVIEW OF MEDICAL RECORDS: ? Last seen on 05/15/19: ? Assessments ? 1. Elevated LFTs - R94.5 (Primary) ? 2. Abnormal US (ultrasound) of abdomen - R93.5 ? 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 Hepatitis serologies were negative, Ceruloplasmin, ROSA M, iron studies were normal. Liver Fibrosis Score of 0.66 and Liver Fibrosis Stage F3. ? Elevated bilirubin can be due to hemolysis - Haptoglobin was normal ? I will obtain abd US with elastography to confirm presence of cirrhosis seen on Liver Fibrosis test. ? Treatment ? 1. Elevated LFTs ? LAB: LDH ? IMAGING: US ABDOMEN COMP WITH ELASTOGRAPHY ? 2. Abnormal US (ultrasound) of abdomen ? LAB: PANCREATIC ELASTASE-1, STOOL ? LAB: LIPASE ? Follow Up ? 2 Weeks after US (Reason: FU on elevated LFTs) ? Treatment ? 1. ? Notes: ? 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 Father Diabetes Social History Household Members: Family Housing: House Alcohol intake: never Patient Tobacco Use Status: Never used Tobacco e-Cigarette/Vaping Use: Never Used Second Hand Smoke Exposure: No service: No Current occupational status: disabled Current occupational exposures/hazards: No Cognitive needs: No Hearing needs: No Vision needs: Yes Review of Systems Const All systems reviewed & are unremarkable except as noted in HPI and below Physical Exam Vital Signs: Last Vital Signs Pulse 76 09/05/24 08:20 BP 106/56 L 09/05/24 08:20 Pulse Ox 92 09/05/24 08:20 Oxygen Delivery Method Room Air 09/05/24 08:20 BMI result Body Mass Index 26.0 Const General: no acute distress Nutritional Appearance: average body habitus Orientation/consciousness: patient oriented x3 Limitations: no limitations HEENT Head: Yes normal to inspection Ears: hearing grossly normal bilaterally Eyes Sclerae: sclerae normal Pupils: Equal, round and reactive pupils present Neck Neck: Yes normal visual inspection Chest Chest palpation & inspection: normal inspection of the chest Resp Effort & Inspection: normal respiratory effort Auscultation: clear to auscultation bilaterally Cardio Palpation: normal PMI Rate: regular rate Rhythm: regular rhythm Heart sounds: S1 normal heart sound present, S2 normal heart sound present and no murmurs GI Palpation (GI): Soft to palpation, nontender and No hepatosplenomegaly present Auscultation: normal bowel sounds Rectal Exam - Female: deferred Skin General skin exam: no rashes or lesions noted Neuro General: patient oriented x3, gait normal and moves all extremities Cranial nerves: Yes Equal, round and reactive pupils present Psych Appearance: grossly normal Mental Status: mental status grossly normal Assessment & Plan Assessment & Plan (1) Cirrhosis of liver without ascites: Code(s): K74.60 - Unspecified cirrhosis of liver Category: Medical Qualifiers: Hepatic cirrhosis type: unspecified hepatic cirrhosis Qualified Code(s): K74.60 - Unspecified cirrhosis of liver Plan 29 YF with 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 Pt was referred to GI for elevated LFTs - elevation of total bilirubin - predominently indirect, and intermittent mild elevation of ALT. Hepatitis serologies were negative, Ceruloplasmin, ROSA M, iron studies were normal. Liver Fibrosis Score of 0.66 and Liver Fibrosis Stage F3. Haptoglobin was normal Abd US with elastography confirmed presence of cirrhosis seen on Liver Fibrosis test. MELD Na score has been stable at 13. Hepatitis serologies showed immunity to hepatitis A and non immune to hep B (unclear if she received hepatitis-B vaccination as an ). Hep B vaccine given by GI RN today (1st Dose) in 01/2022 Hep B #2 vaccine given on 02/11/22. Hep B vaccine # 3 given by GI RN today (3rd dose) on 07/28/22 Patient has likely developed cirrhosis as a complication of Fontan's procedure as a result of chronic low-cardiac output state combined with increased mesenteric resistance and chronic venous congestion. Patient will be scheduled for an upper endoscopy to screen for varices if platelet count decreases to <100, 000. Records from Cardiology clinic (Last clinic vist in July 2021) were reviewed. Pt seen by [facility] (Dr Puga) at pt's GM's request so pt can be seen by Cardiology every 6 months instead of annually. She will continue to see Dr Garcia at [facility] on an annual basis. 09/05/24 Schedule Abd US FU in 6 months - scheduled 03/13/25 Orders: Orders US abdomen limited Today K74.60 - Unspecified cirrhosis of liver Coding Level of Care Code Est Pt Level 3 (99064) Diagnoses Cirrhosis of liver without ascites, unspecified hepatic cirrhosis type K74.60 Hepatic cirrhosis type: unspecified hepatic cirrhosis Time Spent (min) 16
== END 2024-09-05 08:49 | disposition home or self-care (01) ==
LOC: HO.HGI 08:11
PROVIDERS: PCP Internal Medicine; Visit Provider Internal Medicine Gastroenterology
DX: K74.60 Unspecified cirrhosis of liver (principal)
CPT/HCPCS: 99213

== ENCOUNTER → 2024-09-05 08:10 | Outpatient (BNVA) | payer OTHER, SELFPAY | PROVIDERS: PCP Internal Medicine; Visit Provider Internal Medicine Gastroenterology | DX: K74.60 Unspecified cirrhosis of liver (principal) | CPT/HCPCS: 99212 ==

== ENCOUNTER 2024-10-31 11:20 | Outpatient (REF) | payer OTHER, SELFPAY ==
--- NOTE | ~2024-10-31 | US_ITS ---
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 The visualized pancreas is normal. The aorta and inferior vena cava are normal caliber. The liver is normal in size, Mild heterogeneous increased echogenicity. No hepatic lesions There is no intrahepatic bile duct dilatation. The common duct is 4 mm in diameter. The gallbladder is normal. There is no sonographic Malone sign. The main portal vein is antegrade. The left kidney is 11.8 cm in length. No ascites. IMPRESSION: Known situs inversus. Findings suspicious for hepatocellular disease possible hepatic cirrhosis This document has been electronically signed by: Tonny Sanchez MD on 11/01/2024 08:43:51
--- OUTSIDE RECORDS SUMMARY | 2024-10-31 12:09 | XMS_ITS | Clinical Summary ---
Author Organization [facility] spital Address [address] [place] [address] Phone Care Team Providers Care Labor And Delivery Nurse Name Role Phone Sandra Stanley Unavailable [phone] Sandra Stanley Primary Care Provider Sandra Stanley Unavailable [phone] Lucretia Sumner MD Unavailable [phone] Ron Angeles MD Unavailable [phone] Lucretia Sumner MD Unavailable [phone] Medications acetaminophen (Tylenol) 325 mg tablet Dose: 650 mg, Dose Amount: 2 tab, PO, Q4hr, PRN Fever/Pain, Entered: 04/28/16 9:39:44 EST 04/28/2016 Active digoxin (Lanoxin) 125 MCG tablet Dose: 125 mcg, Dose Amount: 1 tab, PO, EveryOtherDay , Entered: 04/28/16 11:40:18 EST 04/28/2016 Active lisinopril 2.5 mg tablet Dose: 2.5 mg, Dose Amount: 1 tab, PO, daily, Dispense Quantity: 30 tab, Entered: 12/28/15 14:27:39 EDT 12/28/2015 Active Social History Tobacco Use Types Packs/Day Years Used Date Smoking Tobacco: Never Assessed Comments Unknown Sex and Gender Information Value Date Recorded Sex Assigned at Not on file Legal Sex Female 2:33 PM EDT Gender Identity Not on file Sexual Orientation Not on file Last Filed Vital Signs Vital Sign Reading Time Taken Comments Blood Pressure - - Pulse - - Temperature - - Respiratory Rate - - Oxygen Saturation - - Inhaled Oxygen Concentration - - Weight 54.8 kg (120 lb 13 oz) 04/28/2016 8:12 AM EST Height 157.5 cm (5' 2.01 ) 04/26/2016 7:42 AM ES T Body Mass Index 22.09 04/26/2016 7:42 AM EST Plan of Treatment Not on file Care Teams Labor And Delivery Nurse Relationship Specialty Start Date End Date Sandra Stanley [address] [place] [address] PCP - Insurance PCP 07/12/19 Sandra Stanley [address] [place] [address] PCP - General 10/18/12 Sandra Stanley [address] [place] [address] PCP - Clinical PCP 11/26/12 Lucretia Sumner MD [address] [place] [address] Associate Attending Cardiology 07/15/13 Ron Angeles MD [address] [place] [address] HC CV Surgeon 09/02/23 Lucretia Sumner MD [address] [place] [address] Supervisor Industrial Garment 09/02/23
== END 2024-10-31 11:21 | disposition home or self-care (01) ==
LOC: HO.US 11:20
PROVIDERS: PCP Internal Medicine; Visit Provider Internal Medicine Gastroenterology
DX: K74.60 Unspecified cirrhosis of liver (principal)
CPT/HCPCS: 76705

== ENCOUNTER → 2024-10-31 11:24 | Outpatient (BNV) | payer OTHER, SELFPAY | PROVIDERS: PCP Internal Medicine; Visit Provider Radiology Diagnostic Radiology | DX: K74.60 Unspecified cirrhosis of liver (principal) | CPT/HCPCS: 76705 ==

== ENCOUNTER 2024-12-16 09:21 | Outpatient (REF) | payer OTHER, SELFPAY ==
[2024-12-16 13:45] LABS: Cholesterol 155 mg/dL (<200); HDL Cholesterol 33 mg/dL (>40); Triglycerides 284 mg/dL (<150)
== END 2024-12-16 09:22 | disposition home or self-care (01) ==
LOC: HO.HMGCLDS 09:21
PROVIDERS: PCP Internal Medicine; Visit Provider Internal Medicine
DX: I05.0 Rheumatic mitral stenosis (principal)
CPT/HCPCS: 36415; 80061

== ENCOUNTER 2024-12-23 13:32 | Outpatient (AMB) | payer OTHER, SELFPAY ==
[2024-12-23 14:00] VITALS: BP 100/70; PULSE 73; RESP 16; TEMP 36.8; O2SAT 93; BMI 28.0
--- NOTE | 2024-12-23 14:00 | MHC.PC.OV ---
Vital Signs 12/23/24 14:00 Height 5 ft 3 in Weight 158 lb BMI 28.0 BP 100/70 Blood Pressure Location Rt brachial Position Sitting Respiration 16 Pulse 73 Pulse Source Pulse Oximeter Temp 98.3 F Temp Source Oral Pulse Oximetry (%) 93 Intake Visit Reasons: f/u lipids Intake Note: Pt is here today for f/u lipids Allergies No Known Allergies Allergy (Verified 12/23/24 14:02) Tobacco use date assessed: 12/23/24 Dental Screening Dental Screen Date: 12/23/24 Did you have a dental visit in the last 12 months?: Yes Did you have a dental problem in the last 6 months where you did not have access to dental care?: No Was dental information given to patient?: Patient has dentist [facility] Medical History Depression with anxiety History of congenital heart disease History of endocarditis Need for pneumococcal 20-valent conjugate vaccination Personal history of COVID-19 Neurocognitive disorder Mitral stenosis Patent ductus arteriosus 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 Father Diabetes Social History Household Members: Family Housing: House Alcohol intake: never Patient Tobacco Use Status: Never used Tobacco e-Cigarette/Vaping Use: Never Used Second Hand Smoke Exposure: No service: No Current occupational status: disabled Current occupational exposures/hazards: No Cognitive needs: No Hearing needs: No Vision needs: Yes Questionnaire PHQ-9 Over the last 2 weeks, how often have you been bothered by any of the following problems? 1. Little interest or pleasure in doing things: not at all 2. Feeling down, depressed, or hopeless: not at all 3. Trouble falling or staying asleep, or sleeping too much: several days 4. Feeling tired or having little energy: not at all 5. Poor appetite or overeating: not at all 6. Feeling bad about yourself - or that you are a failure or have let yourself or your family down: not at all 7. Trouble concentrating on things, such as reading the newspaper or watching television: not at all 8. Moving or speaking so slowly that other people could have noticed. Or the opposite - being so fidgety or restless that you have been moving around a lot more than usual: not at all 9. Thoughts that you would be better off or of hurting yourself in some way: not at all Total score: 1 Depression Screening Interpretation: Negative Depression Screening Done: Yes Source: Developed by Drs. Tonny Grimm, Ksenia Delong, Roly Walker and colleagues, with an educational anayeli from [employer]. Thrive Questionnaire Date Thrive assessed: 07/16/24 I am a: Patient What is your living situation today?: I have a steady place to live Within the past 12 months, did the food you bought not last and you didn't have the money to get more?: Never true Within the past 12 months, did you worry whether your food would run out before you got money to buy more?: Never true Do you have trouble paying for medicines?: No Do you have trouble getting transportation to medical appointments?: No Do you have trouble paying your heating and electricity bill?: No Do you have trouble taking care of your child, family member or friend?: No Do you have trouble with day-to-day activities such as bathing, preparing meals, shopping, managing finances, etc.?: No Are you currently unemployed and looking for a job?: No Are you interested in more education?: No Please select the resources that you would like help with: None Currently or been in a relationship where the following occur: I choose not to answer THRIVE Score: 0 AUDIT C Alcohol Use Questionnaire (AUDIT-C) 1. How often do you have a drink containing alcohol?: Never Total Score: 0 DIMAS-7 AMB Questionnaire DIMAS-7 Date DIMAS - 7 assessed: 07/23/24 Feeling nervous, anxious, or on edge: 1 = Several days Not being able to stop or control worryin = Several days Worrying too much about different things: 1 = Several days Trouble relaxin = Not at all Being so restless that it is hard to sit still: 0 = Not at all Becoming easily annoyed or irritable: 0 = Not at all Feeling afraid as if something awful might happen: 0 = Not at all Total DIMAS-7 score (0-4 normal; 5-9 mild; 10-14 moderate; 15-21 severe): 3 Source: Developed by Drs. Tonny Grimm, Ksenia Delong, Roly Walker and colleagues, with an educational anayeli from [employer]. Physical exam (Primary Care) Vital Signs: Last Vital Signs Temp 98.3 F 12/23/24 14:00 Pulse 73 12/23/24 14:00 Resp 16 12/23/24 14:00 BP 100/70 12/23/24 14:00 Pulse Ox 93 12/23/24 14:00 BMI result Body Mass Index 28.0 Tobacco/Smoking Status: Tobacco use Status Tobacco use date assessed 12/23/24 12/23/24 14:02 Patient Tobacco Use Status Never used Tobacco 12/23/24 14:02 e-Cigarette/Vaping Use Never Used 12/23/24 14:02 PHQ-9: PHQ-9 Score PHQ-9: Total score 1 12/23/24 14:25 Depression Screening Interpretation: Negative Thrive Assessment: Date of Thrive Assessment Date Thrive assessed 07/16/24 12/23/24 14:02 Currently or been in a relationship where the following occur: I choose not to answer Office Procedures Flu Questionnaire Does the patient have a severe egg allergy?: No Does the patient have severe life threatening allergies?: No Does the patient have a fever or illness today?: No Has the patient ever had Guillain-Faxon Syndrome?: No Has the patient ever had any past reaction to a flu shot?: No Immunizations Fluarix [id number] (PF) 45 mcg (15 mcg x 3)/0.5 mL IM syringe Performing Provider: Sandra Stanley MD Performing Location: [facility] Administered by: Lottie Braswell CMA on 12/23/24 14:34 Dose Route Admin Location Dispensed Lot Number Expiration Date [facility] Friction Welding Machine Operator 0.5 mL IM Left Deltoid 0.5 mL [id number] 09/30/25 [id number] [employer] Authors VIS Given Date VIS Provided VIS Publication Date 12/23/24 Single Vaccine 24 Eligibility Eligibility Date Funding Source Not VFC Eligible 12/23/24 Private Results Reviewed Results Reviewed: Name: Tawny Pendleton Age/Sex: 29/F : 1995 Unit#: [id number] Attend Dr: Sandra Stanley MD Re12/16/24 Status: DEP REF Location: [facility] Disch: SPEC : [id number] AMENA: 12/16/24 STATUS: COMP REQ : [id number] RECD: 12/16/24-[address]: Sandra Stanley MD COMP: 12/16/24 ENTERED: 12/16/[address]: ORDERED: Lipid Panel Test Result Flag Reference Triglyceride 284 H <150 mg/dL Desirable Triglyceride: less than 150 mg/dL Borderline High Triglyceride 150-199 mg/dL High Triglyceride: 200-499 mg/dL Very High Triglyceride: greater than or equal to 5OO mg/dL Cholesterol 155 <200 mg/dL Desirable Cholesterol: less than 200 mg/dL Borderline High Cholesterol: 200-239 mg/dL High Cholesterol: greater than 239 mg/dL LDL Calculated 66 <100 mg/dL Desirable LDL: less than 100 mg/dL Near Optimal/Above Optimal LDL: 110-129 mg/dL Borderline High LDL: 130-159 mg/dL High LDL: 160-189 mg/dL Very High LDL: greater than or equal to 190 mg/dL HDL 33 L >40 mg/dL Desirable HDL: greater than 40 mg/dL Note: This HDL assay may give artificially low results in patients with liver disease. Coding Level of Care Code Est Pt Level 4 (19883) Complex EM visit Add On G2211 Assessment & Plan Assessment & Plan Orders: Orders Influenza [id number] Immunization Today Z23 - Encounter for immunization
== END 2024-12-23 16:20 | disposition home or self-care (01) ==
LOC: HO.HMCC 13:33
PROVIDERS: PCP Internal Medicine; Visit Provider Internal Medicine
DX: Z23 Encounter for immunization (principal)

== ENCOUNTER → 2024-12-23 13:32 | Outpatient (BNVA) | payer OTHER, SELFPAY | PROVIDERS: PCP Internal Medicine; Visit Provider Internal Medicine | DX: I10 Essential (primary) hypertension (principal); E78.1 Pure hyperglyceridemia; Z23 Encounter for immunization | CPT/HCPCS: 90471; 90656; 99212 ==

== ENCOUNTER 2024-12-24 13:28 | Outpatient (AMB) | payer OTHER, SELFPAY ==
--- NOTE | 2024-12-24 13:50 | A.OFFVIS_ITS ---
Vital Signs 12/24/24 13:51 Height 5 ft 3 in Weight 160 lb 14.999 oz BMI 28.5 BP 112/76 Blood Pressure Location Lt brachial Position Sitting Pulse 76 Pulse Source Monitor Intake Visit Reasons: r/s km-1 yr f/up Drive[employer] Machine Operator Required: No Accompanied by: Self / Same As Patient Allergies No Known Allergies Allergy (Verified 12/24/24 13:54) Medication List - Last Reconciled 12/24/24 by Eugene Alanis NP aspirin (Adult Low Dose Aspirin) 81 mg PO DAILY buspirone 5 mg PO BID digoxin 125 mcg PO Q OTHER DAY lisinopril 2.5 mg PO DAILY sotalol 80 mg PO BID HPI Comments Details: This is a 29-year-old female coming in for a follow-up visit. 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 Barraza. Patient sees our office for the need of a local patient services specialist and is following with us on a yearly basis. 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 Patient had a revision of this with right pulmonary artery artery plasty on 1994. Patient had a balloon well full plasty of the left pulmonary artery and right pulmonary artery in September of 1994. Patient then had a takedown of the right Kyleigh-Taussig shunt and bilateral Ti was placed and left ventricle to aortic continued was taken down and replaced with a left ventricle congruent from left ventricle to pulmonary artery with a 12 mm aortic homograft in October 1994. Patient then had a closure of mitral valve, enlargement of central pulmonary arteries and lateral tunnel fenestrated Fontan procedure in 2000. Patient developed endocarditis in November 2000 and had a closure of the Fontan fenestration with a 17 mm CardioSEAL device in July 2002. Patient has been on sotalol for intra-atrial reentrant tachycardia. Patient developed liver cirrhosis for which patient follows Dr. Costa.) Patient sees Dr. Barraza on an annual basis. Today, patient is reporting feeling well overall without any cardiac symptoms of exertional chest pain, shortness of breath, palpitations, dizziness, orthopnea, PND, leg edema, presyncope, or syncope. Patient is reporting compliance with all her medications and is reporting staying active by going to the gym regularly. 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 Father Diabetes Social History Household Members: Family Housing: House Alcohol intake: never Patient Tobacco Use Status: Never used Tobacco e-Cigarette/Vaping Use: Never Used Second Hand Smoke Exposure: No service: No Current occupational status: disabled Current occupational exposures/hazards: No Cognitive needs: No Hearing needs: No Vision needs: Yes Review of Systems Const Denies daytime sleepiness, Denies difficulty sleeping, Denies snoring, Denies stops breathing during sleep and Denies weakness Card Denies chest pain, Denies rapid heart rate, Denies irregular heart rhythm, Denies claudication, Denies leg edema, Denies lightheadedness, Denies palpitations, Denies dyspnea, Denies dyspnea on exertion, Denies orthopnea, Denies paroxysmal nocturnal dyspnea and Denies slow heart rate Resp Denies cough, Denies dyspnea, Denies dyspnea on exertion and Denies snoring GI Reports no additional complaints, Denies hematochezia, Denies change in stool character and Denies dyspepsia Musc Denies abnormal gait, Denies muscle weakness and Denies numbness Neuro Denies abnormal gait, Denies numbness and Denies weakness Endo Denies palpitations Physical Exam Vital Signs: Last Vital Signs Pulse 76 12/24/24 13:51 BP 112/76 12/24/24 13:51 BMI result Body Mass Index 28.5 Const General: cooperative, healthy appearing, comfortable and no acute distress Orientation/consciousness: patient oriented x3 HEENT Head: Yes normal to inspection Neck Neck: Yes normal visual inspection, Yes trachea midline and Yes supple Chest Chest palpation & inspection: normal inspection of the chest Resp Effort & Inspection: normal respiratory effort Auscultation: clear to auscultation bilaterally, no crackles, no rales, no rhonchi and no wheezes Cardio Jugular venous distension: no JVD Palpation: normal PMI Rate: regular rate Rhythm: regular rhythm Heart sounds: S1 normal heart sound present, S2 normal heart sound present, no click, no gallops, Murmur heart sound present systolic and no rubs Peripheral pulses: Peripheral pulses 2+ throughout GI Inspection: Yes normal to inspection Palpation (GI): Soft to palpation Auscultation: normal bowel sounds Skin General skin exam: no rashes or lesions noted Neuro General: patient oriented x3 Extrem General: Yes normal to inspection, No no pedal edema and No calf tenderness Psych Appearance: grossly normal Mental Status: mental status grossly normal Speech and movement: Normal speech and movement present Office Procedures EKG Details: EKG today showed normal sinus rhythm, rate 76 beats per minute, presence of Q-wave in the inferior and anterolateral leads suggestive of inferior and anterolateral infarct (not new), [place] [address]-[id number], Complete Assessment & Plan Assessment & Plan (1) History of congenital heart disease: Code(s): Z87.74 - Personal history of (corrected) congenital malformations of heart and circulatory system Category: Medical Plan: EKG is unchanged. Clinically stable and without any cardiac symptoms. Continue sotalol and digoxin therapy. Blood pressure within normal limits. We will recheck her electrolytes and digoxin level. Patient is continuing to follow up with the GI for liver cirrhosis. Patient states she has been doing well in this regard. Patient to continue following with Dr. Barraza. Advised heart healthy diet, regular exercise, and med compliance. We will plan for patient to follow up with Dr. Puga in 1 year, sooner if needed. In the interim, patient will call the office with any concerns or change in symptoms. This note was generated using voice recognition software. While every effort has been made to ensure accuracy and proper anesthesiology crna, there may be occasional errors that could affect the content or meaning of the described symptoms. Orders: Orders Digoxin Today Z87.74 - Personal history of (corrected) congenital malformations of heart and circulatory system AMB EKG-In Office Today Z87.74 - Personal history of (corrected) congenital malformations of heart and circulatory system Basic Metabolic Panel Today Z87.74 - Personal history of (corrected) congenital malformations of heart and circulatory system Coding Level of Care Code Est Pt Level 4 (84011) Complex EM visit Add On G2211 Diagnoses History of congenital heart disease Z87.74 CPT Codes EKG - CPT: 71710-[id number], Complete ([id number]) Time Spent (min) 32 Comment Time spent in reviewing the chart, test results, assessment, counseling and documentation.
[2024-12-24 13:51] VITALS: BP 112/76; PULSE 76; BMI 28.5
--- OUTSIDE RECORDS SUMMARY | 2024-12-24 16:33 | XMS_ITS | Clinical Summary ---
Author Organization [facility] Address [address] [place] [address] Phone Care Team Providers Care Ui Software Engineer Name Role Phone Sandra Stanley Unavailable [phone] Sandra Stanley Primary Care Provider Sandra Stanley Unavailable [phone] Lucretia Sumner MD Unavailable [phone] Ron Angeles MD Unavailable [phone] Lucretia Sumner MD Unavailable [phone] Medications acetaminophen (Tylenol) 325 mg tablet Dose: [...] of Treatment Not on file Care Teams Ui Software Engineer Relationship Specialty Start Date End Date Sandra Stanley [address] [place] [address] PCP - Insurance PCP 07/12/19 Sandra Stanley [address] [place] [address] PCP - General 10/18/12 Sandra Stanley [address] [place] [address] PCP - Clinical PCP 11/26/12 Lucretia Sumner MD [address] [place] [address] Associate Attending Cardiology 07/15/13 Ron Angeles MD [address] [place] [address] HC CV Surgeon 09/02/23 Lucretia Sumner MD [address] [place] [address] Sap Senior Developer 09/02/23
== END 2024-12-24 14:23 | disposition home or self-care (01) ==
LOC: HO.HCS 13:29
PROVIDERS: PCP Internal Medicine
DX: Z87.74 Personal history of (corrected) congenital malformations of heart and circulatory system (principal)
CPT/HCPCS: 93010; 99214

== ENCOUNTER → 2024-12-24 13:28 | Outpatient (BNVA) | payer OTHER, SELFPAY | PROVIDERS: PCP Internal Medicine | DX: Z87.74 Personal history of (corrected) congenital malformations of heart and circulatory system (principal); R94.31 Abnormal electrocardiogram [ECG] [EKG] | CPT/HCPCS: 93005; 99212 ==